=== PATIENT | female | born 1935 | race Caucasian/White ===

== ENCOUNTER → 2016-10-07 | Outpatient (CLI) | payer MEDICARE, BC ==
--- NOTE | 2016-10-08 09:33 | MAM ---
EXAM DESCRIPTION: MAMMO BREAST SCREENING BILATERAL CAD, images were reviewed with CAD technology, R2 computer-aided detection. CLINICAL HISTORY: [facility]. COMPARISON: 2011. FINDINGS: Routine views are obtained. Glandular pattern has slight nodular contour, stable. No dominant mass, architectural distortion or clustered microcalcification. Stable asymmetry inferior medial left breast since 2011.. IMPRESSION: Benign exam. BIRAD CATEGORY: 2 BENIGN RECOMMENDATIONS: FOLLOW-UP: Routine screening mammogram in one year. According to the [employer], yearly mammograms are recommended starting at age 40 and continuing as long as a woman is in good health. Any breast change noted on a breast self-exam should be reported promptly to the patient's healthcare provider. Breast MRI is recommended for women with an approximately 20-25% or greater lifetime risk of breast cancer, including women with a strong family history of breast or ovarian cancer and women who have been treated for Hodgkin's disease. Electronically signed by: Unique Kee 10/08/2016 09:31
== END ==
LOC: MAMMO 14:57
PROVIDERS: ATTEND Family Medicine
DX: Z12.31 Encounter for screening mammogram for malignant neoplasm of breast (principal)
CPT/HCPCS: 77052; G0202

== ENCOUNTER → 2016-11-26 | Outpatient (CLI) | payer MEDICARE, BC ==
--- NOTE | 2016-11-26 14:24 | MRI ---
Study: MRI of the brain. Indication: TENSION TYPE HEADACHES Technique: Multiplanar, multi sequence MRI of the brain obtained with and without intravenous contrast. Comparison: 10/12/2014. Findings: No MRI evidence of acute ischemia, acute hemorrhage, mass, mass effect, midline shift, or extra-axial fluid collection. No pathologic enhancement. Ventricles are normal in configuration without hydrocephalus. Patchy elevated T2/FLAIR signal abnormality is seen within the periventricular and subcortical white matter. Although nonspecific, this finding is most consistent with chronic microvascular ischemic change. Global parenchymal volume loss noted as well. Midline structures are intact. Paranasal sinuses are adequately aerated. Tiny bilateral mastoid effusions. Osseous structures and soft tissues demonstrate normal signal characteristics. Impression: No MRI evidence of acute intracranial abnormality. Senescent changes. Electronically signed by: Yandel Simpson MD 11/26/2016 2:23 PM [employer]
== END | disposition home or self-care (01) ==
LOC: MRI 07:40
PROVIDERS: ATTEND Family Medicine
DX: G44.209 Tension-type headache, unspecified, not intractable (principal)

== ENCOUNTER 2017-04-17 13:22 | Emergency (ER) | payer MEDICARE, BC ==
--- NOTE | 2017-04-17 13:46 | ED.PDOC ---
History of Present Illness - General Chief Complaint: GI Problem Stated Complaint: epigastric pain/tarry sstools Time Seen by Provider: 04/17/17 13:46 Information Source: patient Exam Limitations: no limitations - History of Present Illness Initial Comments: Blanca Ballard 82 y/o female with history of a.fib on pradaxa (noac) stated that she had sharp epigastric pain 4 days ago with intermittent nausea /vomiting but no hematemesis.Also noticed dark stool while in [place].Has atrial fibrillation and on Pradaxa 75mg po bid. Abdominal Pain Onset Location: epigastric Pain Radiation: back Quality: moderate, sharpness, waxing/waning Timing/Duration: other - 3-4 days ago Improving Factors: nothing Worsening Factors: nothing Associated Symptoms: nausea/vomiting Review of Systems - Review of Systems Constitutional: States: no symptoms reported EENTM: States: no symptoms reported Respiratory: States: no symptoms reported Cardiology: States: no symptoms reported Gastrointestinal/Abdominal: States: see HPI Genitourinary: States: no symptoms reported Musculoskeletal: States: no symptoms reported Skin: States: no symptoms reported Neurological: States: no symptoms reported Endocrine: States: no symptoms reported Hematologic/Lymphatic: States: no symptoms reported Past Medical History (General) - Patient Medical History Hx Stroke: No Hx Cardiac Disorders: Yes - a fib Hx Congestive Heart Failure: No Hx Hypertension: Yes Hx Diabetes: No - Social History Hx Tobacco Use: No Family Medical History - Family History Mother Living Status: Cause of : pancreatic CA Hx Family Cancer: Yes - breast,pancreas-sister/mom Physical Exam - Physical Exam General Appearance: Alert, Comfortable, No apparent distress Eyes, Ears, Nose, Throat Exam: PERRL/EOMI, normal ENT inspection, TMs normal Neck: non-tender, full range of motion, supple Respiratory: chest non-tender, lungs clear, normal breath sounds, no respiratory distress Cardiovascular/Chest: normal peripheral pulses, regular rate, rhythm, no edema, no murmur Peripheral Pulses: No deficit Gastrointestinal/Abdominal: normal bowel sounds, non tender, soft Rectal Exam: normal rectal tone, black stool Back Exam: normal inspection, no CVA tenderness, no vertebral tenderness Extremity: normal range of motion, non-tender, normal inspection Neurologic: alert, normal mood/affect, oriented x 3 Skin Exam: normal color, warm/dry Lymphatic: no adenopathy Progress - Progress Progress: 04/17/17 18:19 Vital Signs - 8 hr 04/17/17 04/17/17 04/17/17 15:22 16:22 17:22 Pulse Rate [ 84 Left Brachial] Respiratory 20 Rate Blood Pressure 114/48 119/83 126/54 [Left Arm] O2 Sat by Pulse 100 Oximetry 04/17/17 18:24 Unable to give PRBC 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 stated that she has cold agglutinins on blood / type - Results/Orders Results/Orders: 04/17/17 13:47 URINALYSIS Stat 04/17/17 13:48 IV Care:Saline Lock per Protoc QSHIFT 04/17/17 13:55 PACKED CELLS,LR Stat TYPE AND SCREEN Stat Laboratory Results - last 24 hr 04/17/17 04/17/17 04/17/17 13:55 13:55 13:55 WBC 5.9 RBC 1.99 L Hgb 6.0 L* Hct 17.6 L MCV 88.6 MCH 30.1 MCHC 34.0 RDW 14.3 Plt Count 214 MPV 9.5 Absolute Neuts (auto) 4.30 Absolute Lymphs (auto) 1.10 Absolute Monos (auto) 0.40 Absolute Eos (auto) 0.00 Absolute Basos (auto) 0.10 Neutrophils % 71.7 Lymphocytes % 19.0 L Monocytes % 7.6 Eosinophils % 0.5 L Basophils % 1.2 Sodium 138 Potassium 4.2 Chloride 103 Carbon Dioxide 24 Anion Gap 15.2 BUN 42 H Creatinine 1.28 BUN/Creatinine Ratio 32.8 H Random Glucose 141 H Serum Osmolality 288.5 Calcium 8.8 Total Bilirubin 0.5 AST 21 ALT 11 Alkaline Phosphatase 37 L Serum Total Protein 6.5 Albumin 3.8 Globulin 2.7 Albumin/Globulin Ratio 1.4 Lipase 20 L Stool Occult Blood Patient ABO/Rh A POSITIVE Antibody Screen Negative Crossmatch See Detail 04/17/17 15:14 WBC RBC Hgb Hct MCV MCH MCHC RDW Plt Count MPV Absolute Neuts (auto) Absolute Lymphs (auto) Absolute Monos (auto) Absolute Eos (auto) Absolute Basos (auto) Neutrophils % Lymphocytes % Monocytes % Eosinophils % Basophils % Sodium Potassium Chloride Carbon Dioxide Anion Gap BUN Creatinine BUN/Creatinine Ratio Random Glucose Serum Osmolality Calcium Total Bilirubin AST ALT Alkaline Phosphatase Serum Total Protein Albumin Globulin Albumin/Globulin Ratio Lipase Stool Occult Blood Positive Patient ABO/Rh Antibody Screen Crossmatch Vital Signs - 8 hr 04/17/17 04/17/17 04/17/17 15:22 16:22 17:22 Pulse Rate [ 84 Left Brachial] Respiratory 20 Rate Blood Pressure 114/48 119/83 126/54 [Left Arm] O2 Sat by Pulse 100 Oximetry Departure - Departure Clinical Impression: Anemia due to blood loss, retirement (current) use of anticoagulants Gastrointestinal bleeding Qualifiers: GI bleed type/associated pathology: melena Qualified Code(s): K92.1 - Melena A-fib Qualifiers: Atrial fibrillation type: chronic Qualified Code(s): I48.2 - Chronic atrial fibrillation Time of Disposition: 18:27 - D/W Dr.Zardain [facility] Disposition: Transfer to Hospital Departure Forms: Patient Portal Self Enrollment Referrals: Len Sosa III, MD [Primary Care Provider] - 1-2 Weeks Home Medications: Ambulatory Orders Dabigatran Etexilate [Pradaxa] 75 mg PO BID 06/15/14 Gabapentin [Neurontin] 300 mg PO QPM #20 cap 06/15/14 Metoprolol Succinate [Toprol XL] 25 mg PO BEDTIME 06/15/14 Simvastatin [Zocor] 20 mg PO BEDTIME 06/15/14 Bioflavonoid Products [Vitamin C] 1 chw PO DAILY 04/17/17 Estrogens, Conjugated [Premarin] 0.3 mg PO DAILY@62904/17/17 Furosemide Tab [Lasix Tab] 40 mg PO DAILY 04/17/17 Gabapentin [Neurontin] 300 mg PO PRN 04/17/17 Multiple Vitamin [Multi Vitamin] 1 tab PO DAILY 04/17/17 [place]-3 Fatty Acids [Fish Oil] 1 cap PO DAILY 04/17/17 Pantoprazole Tablet [Protonix] 40 mg PO ACBK 04/17/17 Potassium Chloride [K-Tab] 20 meq PO DAILY@62904/17/17 Transfer to Outside Facility - Transfer Information Accepting Facility: [facility] [place] Reason for Transfer: specialized care not available
[2017-04-17] MEDS ORDERED: PANTOPRAZOLE INJECTION 80 MG in SODIUM CHLORIDE 0.9% 100ML 80 ML IVPB ONE (15:09)
[2017-04-17] MEDS ORDERED: PANTOPRAZOLE SODIUM IV 40 MG VIAL ONE ×2 (15:42→15:45)
[2017-04-17] MEDS ORDERED: SODIUM CHLORIDE 0.9% 100ML 100 ML IVPB ONE (15:43)
[2017-04-17 19:22] VITALS: BP 127/57; TEMP 98.9; O2SAT 99
== END 2017-04-17 19:15 | disposition short-term general hospital (02) ==
LOC: ER 13:22
DX: D50.0 Iron deficiency anemia secondary to blood loss (chronic) (principal); K92.1 Melena; I48.2 Chronic atrial fibrillation; I10 Essential (primary) hypertension; Z79.01 Long term (current) use of anticoagulants
CPT/HCPCS: 36415; 80053; 82270; 83690; 85025; 86922; J7050; P9017

== ENCOUNTER → 2017-07-07 | Outpatient (CLI) | payer MEDICARE, BC | END | disposition home or self-care (01) | LOC: GMAL 10:09 | PROVIDERS: ATTEND Family Medicine | DX: D53.9 Nutritional anemia, unspecified (principal) ==

== ENCOUNTER → 2017-10-06 | Outpatient (CLI) | payer MEDICARE, BC | END | disposition home or self-care (01) | LOC: GMAL 10:50 | PROVIDERS: ATTEND Family Medicine | DX: D53.9 Nutritional anemia, unspecified (principal) ==

== ENCOUNTER → 2018-02-24 | Outpatient (CLI) | payer MEDICARE, BC ==
--- NOTE | 2018-02-26 13:12 | MAM ---
EXAM DESCRIPTION: 3D Screening BILATERAL : Digital Mammography. CLINICAL HISTORY: 83 years Female SCREENING . No complaints. Remote family history of breast cancer. No childbirth. Postmenopausal. Currently on HRT. COMPARISON: 2-D digital screening bilateral study 10/07/2016.. Report from prior examination also reviewed. TECHNIQUE: Bilateral CC and MLO projection full-field images, 3-D tomosynthesis digital mammographic technique. CAD not utilized. FINDINGS: The breast parenchymal density pattern is: Heterogeneously dense breast tissue, which may obscure small masses. No skin thickening or nipple retraction. Bilateral axillary lymph nodes. Bilateral solitary microcalcifications. Coarse calcification with soft tissue mass anterior lateral right breast. No focal, stellate mass or density, focal asymmetry , and no suspicious microcalcifications bilaterally. Stable mammograms compared to prior study, taking into account differences in mammographic technique IMPRESSION: BI-RADS CATEGORY: 2 - BENIGN FINDINGS. FOLLOW UP: Routine digital bilateral screening, one year interval from January 2018. Written communication explaining the IMPRESSION and follow-up, will be mailed to the patient and referring health care provider. According to the [employer], yearly mammograms are recommended starting at age 40 and continuing as long as a woman is in good health. Any breast change noted on a breast self-exam should be reported promptly to the patient's healthcare provider. Breast MRI is recommended for women with an approximately 20-25% or greater lifetime risk of breast cancer, including women with a strong family history of breast or ovarian cancer and women who have been treated for Hodgkin's disease. A negative mammographic report should not delay tissue diagnosis in patients with significant clinical history or physical findings. Extremely dense breast tissue limits the sensitivity of digital mammography. Electronically signed by: Frank Arango MD 02/26/2018 1:11 PM CDT
== END ==
LOC: MAMMO 10:45
PROVIDERS: ATTEND Family Medicine
DX: Z12.31 Encounter for screening mammogram for malignant neoplasm of breast (principal); R30.0 Dysuria

== ENCOUNTER 2018-05-18 09:17 | Observation (INO) | payer MEDICARE, BC ==
--- NOTE | 2018-05-18 10:06 | RAD ---
EXAM DESCRIPTION: Wrist,Left 3 Views CLINICAL HISTORY: fall, swelling, pain COMPARISON: None. IMPRESSION: 3 views of the left wrist show severe osteopenia of the osseous structures. There is a comminuted intra-articular mildly impacted fracture of the left distal radius without significant angulation of the fracture fragments. Nondisplaced left ulnar styloid avulsion fracture is seen. Mild osteoarthritic changes of the left first carpometacarpal joint are noted. Soft tissue swelling of the left wrist is seen. Electronically signed by: Chico Osborn MD 05/18/2018 10:05 AM CDT
--- NOTE | 2018-05-18 10:13 | ED.PDOC ---
History of Present Illness - General Chief Complaint: Lower Extremity Injury Stated Complaint: L wrist injury Time Seen by Provider: 05/18/18 09:53 Source: patient, family Exam Limitations: no limitations - History of Present Illness Initial Comments: the patient presents to the ED status post fall. The patient was noted to be ambulating and she was turning she was noted to fall and strike her head as well as face. The patient also states that she landed onto her left wrist. The patient states she had no LOC w/this issue but due to persistent pain in the left wrist as well as being on blood thinners she comes into the ED for further evaluation and care at this time. The patient is without other acute complaints at this time. Occurred: just prior to arrival Method of Injury: fell Improving Factors: immobilization Worsening Factors: movement Allergies/Adverse Reactions: Allergies Penicillins Allergy (Mild, Verified 05/18/18 09:41) Other swelling to lower extremities Home Medications: Ambulatory Orders Dabigatran Etexilate [Pradaxa] 75 mg PO BID 06/15/14 Gabapentin [Neurontin] 300 mg PO QPM #20 cap 06/15/14 Metoprolol Succinate [Toprol XL] 25 mg PO BEDTIME 06/15/14 Simvastatin [Zocor] 20 mg PO BEDTIME 06/15/14 Bioflavonoid Products [Vitamin C] 1 chw PO DAILY 04/17/17 Estrogens, Conjugated [Premarin] 0.3 mg PO DAILY@0630 04/17/17 Furosemide Tab [Lasix Tab] 40 mg PO DAILY 04/17/17 Gabapentin [Neurontin] 300 mg PO PRN 04/17/17 Multiple Vitamin [Multi Vitamin] 1 tab PO DAILY 04/17/17 [place]-3 Fatty Acids [Fish Oil] 1 cap PO DAILY 04/17/17 Pantoprazole Tablet [Protonix] 40 mg PO ACBK 04/17/17 Potassium Chloride [K-Tab] 20 meq PO DAILY@0630 04/17/17 Review of Systems - Review of Systems Musculoskeletal: States: see HPI All other Systems: Reviewed and Negative Past Medical History (General) - Patient Medical History Hx Stroke: No Hx Cardiac Disorders: Yes - A fib Hx Congestive Heart Failure: No Hx Hypertension: Yes Hx Diabetes: Yes Hx Gastroesophageal Reflux: Yes Surgical History: cholecystectomy, tonsillectomy, other - Vaccination History Hx Influenza Vaccination: Yes - 2017 Hx Pneumococcal Vaccination: Yes - Social History Hx Tobacco Use: No Family Medical History - Family History Mother Living Status: Cause of : pancreatic CA Hx Family Cancer: Yes - breast,pancreas-sister/mom Physical Exam - Physical Exam General Appearance: Alert, Comfortable Eyes, Ears, Nose, Throat: PERRL/EOMI, normal ENT inspection Neck: non-tender, full range of motion Cardiovascular/Respiratory: regular rate, rhythm, no M/R/G Gastrointestinal/Abdominal: non-tender Back: normal inspection Thigh/Hip: normal inspection Leg: normal inspection Knee: normal inspection Ankle: normal inspection Foot: normal inspection Neuro/Tendon: normal sensation Mental Status: alert, oriented x 3 Skin: normal color Comments: The patient's left wrist is evaluated at this time and she is noted to have mild swelling. The patient's dorsalis pedis pulses are intact bilaterally and w/ in normal limits. The patient's ROM of the left wrist is noted to be restricted as well due to pain. Progress - Progress Progress: 05/18/18 10:17 PATIENT PRESENTATION APPEARS TO BE CONSISTENT WITH INJURIES DUE TO TRAUMA. WILL ORDER IMAGING OF AREAS THAT WERE INJURED(PLAIN FILMS OF THE WRIST WELL CT HEAD/NECK DUE TO BLOOD THINNER USAGE.) TO EVALUATE FOR EMERGENT PATHOLOGY IN THESE AREAS. I WILL ALSO ORDER SCREENING LABS WELL PT/INR IN LIGHT OF PATIENT BEING ANTICOAGULATED. THE PATIENT'S DISPO WILL BE DEPENDENT UPON HER ED WORK UP. 05/18/18 11:03 THE PATIENT HAS BEEN ADVISED THAT SHE IS NOTED TO HAVE FX OF THE LEFT WRIST AND WILL REQUIRE SPLINT PLACEMENT. SHE IS ADVISED I WILL CONTACT ORTHOPEDICS FOR THEIR RECOMMENDATIONS. SHE IS ALSO ADVISED SHE REQUIRES OBSERVATION IN THE HOSPITAL DUE TO HER FALL. 05/18/18 11:36 THE PATIENT REMAINS WELL AT THIS TIME. SHE HAS BEEN ADVISED OF HER CT RESULTS AT THIS TIME. SHE IS ADVISED THAT DR. CROOKS RECOMMENDS TO CALL HIS OFFICE WHEN DISCHARGED SO THAT HE MAY SEE HER TO FORM A PLAN TO CARE FOR HER INJURIES. THE PATIENT IS IN AGREEMENT W/ THIS PLAN. 05/18/18 11:43 - EKG/XRAY/CT EKG: Atrial, nonspecific ST T wave Chg Comments: RATE 81BPM, QRS-78MS - Consult/PCP Time Called: 11:30 Consult/PCP: DR. CROOKS(ORTHO) Consult Reason/Comments: STATES THE PATIENT MAY F/U WITH HIM ON AN OUTPATIENT BASIS FOR FURTHER EVAL - Additional EKG/XRAY/Consults Time Called: 11:36 Consult/PCP: MR ALEXANDER Reason/Comments: ACCEPTS THE PATIENT FOR MONITORING OVERNIGHT DUE TO FALL. Procedures - Splinting Left Wrist Hand-Made Type: orthoglass Splint: sugar-tong Pre-Proc Neuro Vasc Exam: normal Post-Proc Neuro Vasc Exam: normal Progress: PATIENT TOLERATED PROCEDURE WELL. Departure - Departure Clinical Impression: Fracture due to fall, Fracture of head of femur Head injury due to trauma Qualifiers: Encounter type: initial encounter Qualified Code(s): S09.90XA - Unspecified injury of head, initial encounter Distal radial fracture Qualifiers: Encounter type: initial encounter Fracture type: closed Fracture morphology: other intra-articular Laterality: left Qualified Code(s): S52.572A - Other intraarticular fracture of lower end of left radius, initial encounter for closed fracture Clinical Impression: (Ruled Out): Radial head fracture, closed Disposition: Admit Patient Condition: Fair Instructions: DI for Leg Pain Home Medications: Ambulatory Orders Dabigatran Etexilate [Pradaxa] 75 mg PO BID 06/15/14 Gabapentin [Neurontin] 300 mg PO QPM #20 cap 06/15/14 Metoprolol Succinate [Toprol XL] 25 mg PO BEDTIME 06/15/14 Simvastatin [Zocor] 20 mg PO BEDTIME 06/15/14 Bioflavonoid Products [Vitamin C] 1 chw PO DAILY 04/17/17 Estrogens, Conjugated [Premarin] 0.3 mg PO DAILY@0630 04/17/17 Furosemide Tab [Lasix Tab] 40 mg PO DAILY 04/17/17 Gabapentin [Neurontin] 300 mg PO PRN 04/17/17 Multiple Vitamin [Multi Vitamin] 1 tab PO DAILY 04/17/17 [place]-3 Fatty Acids [Fish Oil] 1 cap PO DAILY 04/17/17 Pantoprazole Tablet [Protonix] 40 mg PO ACBK 04/17/17 Potassium Chloride [K-Tab] 20 meq PO DAILY@0604/17/17
--- NOTE | 2018-05-18 10:39 | CT ---
EXAM DESCRIPTION: Head CLINICAL HISTORY: 83 years, Female, trauma COMPARISON: None TECHNIQUE: Head CT was performed without IV contrast. This exam was performed according to our departmental dose-optimization program, which includes automated exposure control, adjustment of the mA and/or kV according to patient size and/or use of iterative reconstruction technique. FINDINGS: There is no acute intracranial hemorrhage. No midline shift or mass effect. Generalized age-appropriate volume loss is noted. The ventricles and basilar cisterns are well maintained. No posterior fossa lesion. Chronic ischemic changes are present in the periventricular white matter without cortical infarct or intracranial mass. Visualized paranasal sinuses and orbits are unremarkable. No calvarial lesion. IMPRESSION: Chronic ischemic changes and age-appropriate volume loss, but no acute intracranial abnormality. Electronically signed by: Santo Peterson MD 05/18/2018 10:37 AM CDT
--- NOTE | 2018-05-18 10:42 | CT ---
EXAM DESCRIPTION: Cervical Spine CLINICAL HISTORY: trauma COMPARISON: None available. TECHNIQUE: CT of the cervical spine was performed without IV contrast. This exam was performed according to our departmental dose-optimization program, which includes automated exposure control, adjustment of the mA and/or kV according to patient size and/or use of iterative reconstruction technique. FINDINGS: There is no vertebral body fracture or subluxation. Degenerative changes are noted at several levels in the mid and upper cervical spine including disc space narrowing, worse at C2-3, C4-5 and C5-6. Facet joints are fairly well-maintained. No central canal or neuroforaminal stenosis is identified. Scarring and possible emphysematous changes are noted in the lung apices. No apical pneumothorax. No suspicious thyroid nodule. IMPRESSION: [id number] degenerative changes, but no acute cervical spine abnormality. Electronically signed by: Santo Peterson MD 05/18/2018 10:40 AM CDT
[2018-05-18] MEDS ORDERED: MORPHINE SULFATE INJ 10 MG/ML VIAL IV ONE (11:46)
--- NOTE | 2018-05-18 11:58 | HP ---
SUPERVISING PHYSICIAN: Martin Patel MD CHIEF COMPLAINT: Left wrist pain. HISTORY OF PRESENT ILLNESS: This is an 83-year-old female who was walking outside and was turning onto her walkway when she fell. She remembers falling and was not syncopal, but she did state she felt a little bit weird prior to the episode, also a little bit dizzy, but no chest pain or palpitations. She said it was not even quite dizzy, it was just a weird sensation. She did hit her chin and as she was falling on the ground, she attempted to catch herself with her left wrist. Due to this episode, she came to the Emergency Room. In the Emergency Room, she had a workup which included x-rays. She had a wrist x- ray which showed comminuted intraarticular mildly impacted fracture of the left distal radius without significant angulation of the fracture fragments and nondisplaced left ulnar styloid avulsion fracture. Dr. Rico was consulted and states he would see the patient in consult as an outpatient. However, the patient does take warfarin for chronic atrial fibrillation and although her INR is subtherapeutic, she did have a CT of the brain which did not show any acute findings. CT of the cervical spine showed no acute findings either, but she was referred for admission for observation overnight. At time of examination, the patient is alert and oriented, having a little bit of left wrist pain but otherwise in no severe distress. PAST MEDICAL HISTORY: 1. Chronic atrial fibrillation. 2. Hyperlipidemia. 3. Hypertension. 4. Pulmonary hypertension. 5. Gastroesophageal reflux disease. 6. Diabetes mellitus, type 2. 7. Osteoporosis. 8. Migraine headaches. 9. Possible Parkinson's disease. PAST SURGICAL HISTORY: 1. Tonsillectomy. 2. Tubal ligation. 3. Basal cell carcinoma of the left axilla with radiation therapy. 4. Dental surgery. 5. Ganglion cyst surgery on her wrist. 6. EGD and colonoscopies. 7. 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 Last echocardiogram showed ejection fraction of 55% to 60%, mild biatrial enlargement, mild right ventricular enlargement with mild pulmonary hypertension. ALLERGIES: PENICILLIN, ARICEPT, NAMENDA, NIACIN, PROTONIX, SULFA DRUGS. FAMILY HISTORY: Her father in his 40s from heart disease. Mother in her 70s from pancreatic cancer and she also had type 2 diabetes mellitus. Her brother of a stroke. Her sister had Jeyson's disease and after a valve replacement surgery. SOCIAL HISTORY: The patient is , retired. She is a nonsmoker, nondrinker, no illicit drugs. REVIEW OF SYSTEMS: CONSTITUTIONAL: No fever or chills. No recent weight loss or weight gain. HEENT: No headaches, vision changes, ear pain, nasal congestion or throat pain. RESPIRATORY: No cough, hemoptysis or pleuritic chest pain. CARDIOVASCULAR: No chest pain, palpitations or peripheral edema. GASTROINTESTINAL: No nausea, vomiting, diarrhea, constipation or abdominal pain. GENITOURINARY: No dysuria, frequency or flank pain. HEMATOLOGIC: Positive for easy bruising. No transfusion reaction. MUSCULOSKELETAL: Left wrist pain. ENDOCRINE: No polydipsia, polyuria or polyphagia. No heat or cold intolerance. NEUROLOGIC: No syncope, paresthesias or seizures. PHYSICAL EXAMINATION: VITAL SIGNS: Blood pressure 164/72. Heart rate 82. Respiratory rate 18. Temperature 98.6. Oxygen saturation 97%. GENERAL: Ms. Ballard is an 83-year-old female who is in no active distress currently. HEENT: Normocephalic, atraumatic. Pupils are equal and reactive. No nasal drainage. Throat with moist mucosa. NECK: Supple. Midline trachea. No jugular venous distention. CHEST: Symmetrical with equal rise and fall of the chest with inspiration and expiration. Lung sounds are clear to auscultation bilaterally. CARDIOVASCULAR: Regular rate and rhythm. Normal S1, S2. ABDOMEN: Soft. Positive bowel sounds. GENITOURINARY: Deferred. EXTREMITIES: Lower extremities with no edema. Pulses 2+. Capillary refill is less than 2 seconds. NEUROLOGIC: The patient is alert and oriented. Moves all extremities. Extraocular movements are intact. MUSCULOSKELETAL: Left wrist has edema and some tenderness to palpation. LABORATORY: X-rays are as discussed in history of present illness. Labs also show a normal white count. INR 1.3. She does have a mildly elevated BUN of 26. Otherwise, unremarkable chemistry. ASSESSMENT: 1. Same level fall. 2. Left wrist fracture. 3. History of atrial fibrillation on anticoagulation therapy. 4. Dehydration. 5. History of diagnosed diabetes mellitus, but diet controlled currently. PLAN: At this point, we will monitor the patient overnight to ensure she has no further episodes of falling or feeling odd. As stated in history of present illness, there were no real palpitations or loss of consciousness, however, she did have an odd sensation. I have ordered a child monitor to ensure that she is not having any arrhythmias although she does have a history of atrial fibrillation. Once her medications are verified in the computer, I will restart those as well. I have ordered continuous IV fluids to be infused as well due to the dehydration. #[id number] [facility]
[2018-05-18] MEDS ORDERED: SODIUM CHLORIDE 0.9% (FLUSH) 10 ML SYG IV PRN (13:15)
[2018-05-18] MEDS ORDERED: IV SET AND CAP CHANGE INJ INJ SCH (13:30)
--- NOTE | 2018-05-18 16:21 | US ---
EXAM DESCRIPTION: Venous,Lower Extremity LT CLINICAL HISTORY: 83 years Female rule out dvt COMPARISON: None. TECHNIQUE: Duplex and color Doppler imaging performed to evaluate the extremity deep venous structures. Compression imaging and augmentation imaging performed. FINDINGS: No thrombus is identified in the deep venous structures imaged. There is normal flow, compressibility, and augmentation throughout. IMPRESSION: No DVT is identified. Electronically signed by: Frank Davey 05/18/2018 4:20 PM CDT
--- NOTE | 2018-05-18 16:22 | US ---
EXAM DESCRIPTION: Venous,Lower Extremity RT CLINICAL HISTORY: rule out dvt COMPARISON: None Available. TECHNIQUE: Bilateral lower extremity venous duplex FINDINGS: There is no DVT identified. There is normal color flow observed with good flow augmentation. All deep veins compress normally. IMPRESSION: Negative for DVT Electronically signed by: Smith Espino MD 05/18/2018 4:20 PM CDT
[2018-05-18] MEDS ORDERED: ACETAMINOPHEN 325 MG TAB PO PRN (16:49)
[2018-05-18] MEDS: SODIUM CHLORIDE 0.9% 1000ML 1,000 ML IVS PRN (16:56)
[2018-05-18] MEDS ORDERED: ESTROGENS CONJUGATED 0.3 MG PO SCH (17:45)
[2018-05-18] MEDS ORDERED: GABAPENTIN 300 MG CAP PO SCH (18:00)
[2018-05-18] MEDS: DABIGATRAN ETEXILATE 75 MG CAP PO SCH (20:56)
[2018-05-18] MEDS ORDERED: METOPROLOL SUCCINATE XL 25 MG TAB PO SCH (21:00)
[2018-05-18] MEDS ORDERED: SIMVASTATIN 20 MG TAB PO SCH (21:00)
[2018-05-18] MEDS ORDERED: LOSARTAN POTASSIUM 25 MG TAB PO SCH (21:00)
[2018-05-19] MEDS: SODIUM CHLORIDE 0.9% 1000ML 1,000 ML IVS PRN (02:42)
[2018-05-19] MEDS ORDERED: POTASSIUM CHLORIDE 20 MEQ TAB ONE (04:32)
[2018-05-19] MEDS ORDERED: NON-FORMULARY MEDICATION 1 EA MIS (Potassium Chloride [K-Tab] 20 MEQ) PO SCH (06:30)
[2018-05-19] MEDS ORDERED: PANTOPRAZOLE SODIUM TAB 40 MG PO SCH (07:00)
[2018-05-19] MEDS: DABIGATRAN ETEXILATE 75 MG CAP PO SCH (08:09)
[2018-05-19] MEDS ORDERED: MULTIPLE VITAMIN 1 EA TAB PO SCH (09:00)
[2018-05-19] MEDS ORDERED: FISH OIL 1,200 MG CAP PO SCH (09:00)
[2018-05-19] MEDS ORDERED: DIGOXIN 0.125 MG TAB PO SCH (09:00)
[2018-05-19 10:28] VITALS: BP 174/70; TEMP 98.6; O2SAT 98
--- NOTE | 2018-05-19 10:40 | CT ---
EXAM DESCRIPTION: Head: Computed Tomography. CLINICAL HISTORY: closed head injury S/P fall on Pradaxa. Discharge planning. COMPARISON: CT scan of the head and cervical spine on 05/18/2018. TECHNIQUE: Non-helical axial scans through the skull and brain, at 2.5 mm intervals, non-contrast. Coronal and sagittal 2.0 mm reconstructions. Total Exam DLP: 752.48 mGy-cm. This exam was performed according to our departmental dose-optimization program which includes automated exposure control, adjustment of the mA and/or kV according to patient size and/or use of iterative reconstruction technique; to reduce radiation dose to as low as reasonably achievable (ALARA). FINDINGS: No intra-axial hemorrhage, no mass-effect, and no midline shift. Bilateral minimal periventricular white matter low-density more evident in the frontal and occipital lobes and also in the right frontal subcortical white matter. Stable since the prior study. No abnormal radiodense material in the brain parenchyma. Vascular calcifications anterior and posterior; physiologic calcifications in the pineal gland and choroid plexus. No effacement or displacement of the ventricles, CSF spaces, or subdural spaces. Stable since the prior study. No extra axial fluid collection or hemorrhage. No gross abnormalities of the bony calvarium. Paranasal sinuses are stable. IMPRESSION: 1. No hemorrhage, no mass effect, no midline shift. Periventricular white matter age related changes and cerebral microvascular disease, also focal in the right frontal subcortical white matter. Stable since the prior study. No extra-axial hemorrhage. Electronically signed by: Frank Arango MD 05/19/2018 10:39 AM CDT
[2018-05-19] MEDS ORDERED: metFORMIN HCL 500 MG TAB PO SCH (16:30)
[2018-05-20] MEDS ORDERED: POTASSIUM CHLORIDE 20 MEQ TAB PO SCH (06:30)
--- NOTE | 2018-05-24 09:02 | DS ---
SUPERVISING PHYSICIAN: Martin Patel MD ADMISSION DIAGNOSIS: 1. Same level fall. 2. Left wrist fracture. 3. History of atrial fibrillation on anticoagulation therapy. 4. Dehydration. 5. History of diagnosed diabetes mellitus, but diet controlled currently. DISCHARGE DIAGNOSIS: 1. Same level fall with closed head injury without any evidence of acute pathological findings on CT with the patient having been on Pradaxa. 2. Left wrist fracture with comminuted intraarticular mildly displaced impacted fracture of the left distal radius and nondisplaced left ulnar styloid avulsion fracture status post same level fall. 3. History of atrial fibrillation on Pradaxa with a controlled ventricular rate. 4. Dehydration, improved with fluids. 5. History of diabetes mellitus, diet controlled currently. REASON FOR HOSPITALIZATION: Ms. Ballard is an 83-year-old female who was admitted on 05/18/18 after she was working outside and was turning onto her walkway when she fell. She remembers falling and did not have a syncopal episode, but she did state she felt a little bit weird prior to the episode, also a little bit dizzy, but no chest pain or palpitations. She said it was not even quite dizzy, it was just a weird sensation. She did hit her chin and as she was falling on the ground, she attempted to catch herself with her left wrist. Due to this episode, she came to the Emergency Room. In the Emergency Room, she had a workup which included x-rays. She had a wrist x-ray which showed comminuted intraarticular mildly impacted fracture of the left distal radius without significant angulation of the fracture fragments and nondisplaced left ulnar styloid avulsion fracture. Dr. Rico was consulted and noted he would see the patient as an outpatient. However, the patient does take Pradaxa for chronic atrial fibrillation and had a CT of the brain which did not show any acute findings. CT of the cervical spine showed no acute findings either, but she was referred for admission for observation overnight given her risk factors for taking Pradaxa status post fall and closed head injury. At time of placement in observation, the patient was alert and oriented , having some left wrist pain, but otherwise in no severe distress. LABORATORY: White count was 6,900 at admission with hemoglobin 13.2, hematocrit 39.3, platelet count 162,000. Differential was without left shift. Coagulation studies with the patient on Pradaxa showed PT 13, PT-T 40.9. Chemistries initially on admission showed normal electrolytes as well as discharge with potassium 4.0, BUN 19. At discharge, creatinine 0.98, troponin less than 0.02, calcium 8.7. RADIOLOGY: Wrist x-ray in the Emergency Department per radiologic interpretation initially showed a nondisplaced left ulnar styloid avulsion fracture as well as comminuted intraarticular mildly impacted fracture of the left distal radius without any significant angulation of the fracture fragment. CT of the head without contrast initially in the Emergency Department per radiologic interpretation was also completed and showed chronic ischemic changes with age-appropriate volume loss, but no acute intracranial abnormalities. CT of the cervical spine was also completed and per radiologic interpretation showed mild to moderate degenerative changes, but no acute cervical spine abnormalities noted. She also had bilateral lower extremity ultrasounds with no DVTs identified. On the day of discharge, she had a followup CT of the head without contrast and per radiologic interpretation no additional acute findings were noted. No hemorrhage, no mass effects, no midline shift. HOSPITAL COURSE: Ms. Ballard was admitted from the Emergency Room to observation as noted status post fall with left wrist fracture as well as noted above as well as concerns for possible closed head injury with the patient having high risk factors from being on Pradaxa. She was found to be in no acute distress admission to the Medical/Surgical Floor. She had a sugar-tong splint in place prior to admission that was done in the Emergency Room. She was given adequate pain control. She was given IV fluids. She had no change in her neurologic status and was stable enough to be followed in the outpatient setting. PLAN: Ms. Ballard was discharged on 05/19/18 with instructions to followup with Dr. Rico for further evaluation and treatment of left wrist fracture and Dr. Sosa as needed. She was to resume her home medications as instructed. She was to take pain medications as directed. She was told to return to the hospital should she have any concerning symptoms. Diet at discharge was diabetic diet as tolerated. Activity to increase as tolerated, but no pulling or lifting with left arm. Sling in place as needed. Prescriptions at discharge included Tylenol #3, 1 q.4h. as needed, #30; Flexeril 5 mg q.8h. as needed, #20; Tylenol 650 mg q.6h. as needed. Condition on discharge was stable and improved. #[id number] [facility]
== END 2018-05-19 13:10 | disposition home or self-care (01) ==
LOC: ER 09:17 → MS 11:57
PROVIDERS: ADMIT Nurse Practitioner; ATTEND Nurse Practitioner Family
DX: S52.572A Other intraarticular fracture of lower end of left radius, initial encounter for closed fracture (principal); S52.615A Nondisplaced fracture of left ulna styloid process, initial encounter for closed fracture; S09.90XA Unspecified injury of head, initial encounter; I48.2 Chronic atrial fibrillation; E86.0 Dehydration; E11.9 Type 2 diabetes mellitus without complications; M47.812 Spondylosis without myelopathy or radiculopathy, cervical region; M18.12 Unilateral primary osteoarthritis of first carpometacarpal joint, left hand; E78.5 Hyperlipidemia, unspecified; I10 Essential (primary) hypertension; K21.9 Gastro-esophageal reflux disease without esophagitis; M81.0 Age-related osteoporosis without current pathological fracture; Z79.02 Long term (current) use of antithrombotics/antiplatelets; Z79.84 Long term (current) use of oral hypoglycemic drugs; Z79.899 Other long term (current) drug therapy; Z88.0 Allergy status to penicillin; W18.39XA Other fall on same level, initial encounter; Y93.01 Activity, walking, marching and hiking; Y92.008 Other place in unspecified non-institutional (private) residence as the place of occurrence of the external cause
CPT/HCPCS: 29125; 96361 ×2; J2270; J7030 ×2; 80048 ×2; 36415 ×2; 85025; 85730; 85610; 84484; 73110; 70450 ×2; 72125; 93971 ×2; 99285; 93005; G0378; 96374

== ENCOUNTER → 2018-05-24 | Outpatient (CLI) | payer MEDICARE, BC ==
--- NOTE | 2018-05-24 09:28 | RAD ---
EXAM DESCRIPTION: Wrist,Left 3 Views CLINICAL HISTORY: 83 years Female, PAIN IN LEFT WRIST COMPARISON: May 18, 2018 FINDINGS: Bony detail is obscured by artifact from superimposed material. Again seen is an impacted slightly displaced distal left radial fracture with probable intra-articular extension, not significantly changed from six days prior. A nondisplaced fracture through the base of the ulnar styloid was better seen on the patient's previous radiograph and not well visualized on today's exam. Carpal bones are intact.. IMPRESSION: Impacted, slightly displaced distal left radial fracture with intra-articular extension, not significantly changed from six days prior. Nondisplaced ulnar styloid fracture, better visualized on the patient's previous exam. Electronically signed by: Santo Peterson MD 05/24/2018 9:26 AM CDT
== END ==
LOC: RAD 08:45
PROVIDERS: ATTEND Orthopaedic Surgery
DX: S52.615A Nondisplaced fracture of left ulna styloid process, initial encounter for closed fracture (principal); S52.122A Displaced fracture of head of left radius, initial encounter for closed fracture

== ENCOUNTER → 2018-06-04 | Outpatient (CLI) | payer MEDICARE, BC ==
--- NOTE | 2018-06-04 08:12 | RAD ---
EXAM DESCRIPTION: Wrist,Left 3 Views CLINICAL HISTORY: 83 years, Female, CLOSED FRACTURE OF DISTAL END OF RADIUS COMPARISON: Previous study May 24, 2018 FINDINGS: Left wrist 3 x-ray views shows fractured distal radius with impaction and extension into the radiocarpal joint. Radiocarpal joint appears narrowed. Mild degenerative changes of the lateral carpus and at the first metacarpal phalangeal joint. Fracture through the base of the ulnar styloid is questioned without displacement. Impacted radial fracture appears slightly different in configuration compared to the previous study. The degree of impaction appears greater. The overlap of the lateral fragment with the cortex of the proximal fragment appears greater on the AP view. On the lateral view, the step-off at the articular surface appears new or increased. Between the anterior and posterior fragments, step-off at the articular surface measures 1.4 mm. The more posterior fragment appears more impacted. This could be due to continued motion or reinjury. Radiopaque foreign bodies are seen along the dorsal aspect of the bases of the fourth and fifth digits. Carpal relationships are well-maintained. IMPRESSION: Worsened impaction of the fractured distal left radius. Question nondisplaced fracture of the base of the ulnar styloid Electronically signed by: Michele Burnett MD 06/04/2018 8:10 AM CDT
== END ==
LOC: RAD 07:39
PROVIDERS: ATTEND Orthopaedic Surgery
DX: S52.501D Unspecified fracture of the lower end of right radius, subsequent encounter for closed fracture with routine healing (principal)

== ENCOUNTER → 2018-06-14 | Outpatient (CLI) | payer MEDICARE, BC ==
--- NOTE | 2018-06-14 08:21 | RAD ---
EXAM DESCRIPTION: Wrist,Left 3 Views CLINICAL HISTORY: 83 years, Female, FX distal left radius COMPARISON: Previous study June 04, 2018 FINDINGS: Left wrist 3 x-ray views is obtained with cast material in place. Comminuted impacted fracture of the distal radius is noted. No change in alignment since the previous study there may be early callus formation. Carpal relationships are well-maintained. Distal radius and ulna appear intact. Normal metacarpals. Degenerative changes are seen in the lateral carpus and at the first metacarpal phalangeal joint. Previous report raised the question of fracture of the base of the ulnar styloid. This is not seen on the casted views. IMPRESSION: Casted views of fractured distal left radius. Electronically signed by: Michele Burnett MD 06/14/2018 8:20 AM CDT
== END ==
LOC: RAD 07:48
PROVIDERS: ATTEND Orthopaedic Surgery
DX: S52.501D Unspecified fracture of the lower end of right radius, subsequent encounter for closed fracture with routine healing (principal)

== ENCOUNTER → 2018-06-24 | Outpatient (CLI) | payer MEDICARE, BC ==
--- NOTE | 2018-06-24 11:54 | RAD ---
EXAM DESCRIPTION: Wrist,Left 3 Views CLINICAL HISTORY: CLOSED FX OF DISTAL RADIUS COMPARISON: 24 May 2018 TECHNIQUE: 3 views left FINDINGS: The exam is obtained through casting material. An impacted comminuted fracture of the distal radius is demonstrated. Callus formation is observed at the fracture site. IMPRESSION: A healing comminuted fracture of the distal radius is observed. Electronically signed by: Len Olmedo MD 06/24/2018 11:53 AM CDT
== END ==
LOC: RAD 07:36
PROVIDERS: ATTEND Orthopaedic Surgery
DX: S52.501D Unspecified fracture of the lower end of right radius, subsequent encounter for closed fracture with routine healing (principal)

== ENCOUNTER → 2018-07-05 | Outpatient (CLI) | payer MEDICARE, BC ==
--- NOTE | 2018-07-05 12:20 | RAD ---
EXAM DESCRIPTION: Wrist,Left 3 Views CLINICAL HISTORY: RAD FX COMPARISON: Radiographs left wrist 06/24/2018. TECHNIQUE: AP, lateral, and oblique images left distal forearm and wrist. FINDINGS: Immobilization material limits evaluation of fine detail. Compression fracture of the distal radius and ulna with Colles' type angulation is again seen. Bone more sclerotic abutting the fracture. Proximal shaft of the radius displaced slightly ulnar direction. Radiocarpal orientation is stable with narrowing of the radial scaphoid joint. IMPRESSION: The bone is more sclerotic abutting the fracture site of the distal radius at the meta-epiphysis. Angulation unchanged. Radiocarpal articulation is stable. Electronically signed by: Frank Arango MD 07/05/2018 12:18 PM CDT
== END ==
LOC: RAD 07:45
PROVIDERS: ATTEND Orthopaedic Surgery
DX: S52.501D Unspecified fracture of the lower end of right radius, subsequent encounter for closed fracture with routine healing (principal)

== ENCOUNTER → 2018-07-19 | Outpatient (CLI) | payer MEDICARE, BC ==
--- NOTE | 2018-07-19 09:05 | RAD ---
EXAM DESCRIPTION: Wrist,Left 3 Views CLINICAL HISTORY: 83 years Female, RAD FX COMPARISON: July 05, 2018 FINDINGS: Again seen is an impacted slightly comminuted distal left radial fracture with intra-articular extension. The fracture appears non or partially united, not significantly changed from July 05, 2018. No new fracture or malalignment is identified. IMPRESSION: Impacted, non or only partially united distal left radial fracture with mild comminution and intra-articular extension, not significantly changed from July 05, 2018. Electronically signed by: Santo Peterson MD 07/19/2018 9:03 AM CDT
== END ==
LOC: RAD 07:39
PROVIDERS: ATTEND Orthopaedic Surgery
DX: S52.501D Unspecified fracture of the lower end of right radius, subsequent encounter for closed fracture with routine healing (principal)

== ENCOUNTER → 2018-08-03 | Outpatient (CLI) | payer MEDICARE, BC | LOC: GMAL 11:15 | PROVIDERS: ATTEND Family Medicine | DX: E55.9 Vitamin D deficiency, unspecified (principal) ==

== ENCOUNTER → 2018-08-30 | Outpatient (CLI) | payer MEDICARE, BC ==
--- NOTE | 2018-08-30 09:32 | RAD ---
EXAM DESCRIPTION: Wrist,Left 3 Views CLINICAL HISTORY: 83 years Female, RAD FX COMPARISON: None available. FINDINGS: The visualized bones appear mildly osteopenic. Healing impacted fracture of the distal radius is again noted. The soft tissues appear grossly unremarkable. IMPRESSION: Healing impacted fracture of the distal radius is again noted. Electronically signed by: Martine Hurst MD 08/30/2018 9:30 AM [facility]
== END ==
LOC: RAD 07:36
PROVIDERS: ATTEND Orthopaedic Surgery
DX: S52.502D Unspecified fracture of the lower end of left radius, subsequent encounter for closed fracture with routine healing (principal)

== ENCOUNTER → 2018-09-09 | Outpatient (CLI) | payer MEDICARE, BC ==
--- NOTE | 2018-09-09 10:14 | RAD ---
EXAM DESCRIPTION: Pelvis CLINICAL HISTORY: 83 years Female, PAIN IN RIGHT HIP COMPARISON: None. FINDINGS: Single AP view of the pelvis shows no acute fracture or malalignment. No joint space narrowing. Degenerative changes in the lower lumbar spine including disc disease. Artifact from patient's clothing is noted. IMPRESSION: Degenerative changes in the lower lumbar spine including degenerative disc disease without additional hip or other pelvic abnormality. Electronically signed by: Santo Peterson MD 09/09/2018 10:13 AM [facility]
--- NOTE | 2018-09-09 10:15 | RAD ---
EXAM DESCRIPTION: Knee,Right Complete CLINICAL HISTORY: 83 years Female, PAIN IN RIGHT KNEE COMPARISON: None. FINDINGS: Four views of the right knee show no acute fracture or malalignment. Mild medial joint space narrowing with more advanced joint space narrowing in the patellofemoral compartment. Small to moderate size right knee joint effusion. IMPRESSION: Right knee joint effusion without acute fracture or malalignment. Degenerative changes in the medial and patellofemoral compartments, worse in the patellofemoral compartment. Electronically signed by: Santo Peterson MD 09/09/2018 10:14 AM [facility]
== END ==
LOC: RAD 08:34
PROVIDERS: ATTEND Orthopaedic Surgery
DX: M25.561 Pain in right knee (principal); M25.551 Pain in right hip; M51.36 Other intervertebral disc degeneration, lumbar region; M25.461 Effusion, right knee

== ENCOUNTER → 2018-10-07 | Outpatient (CLI) | payer MEDICARE, BC | LOC: RESP 09:22 | PROVIDERS: ATTEND Orthopaedic Surgery | DX: Z01.818 Encounter for other preprocedural examination (principal) ==

== ENCOUNTER 2018-11-10 06:00 | Inpatient (IN) | payer MEDICARE, BC ==
--- NOTE | 2018-11-08 09:21 | HP ---
CHIEF COMPLAINT: Right knee pain. HISTORY OF PRESENT ILLNESS: Ms. Ballard is a 83-year-old female with a history of pain in the knee. She has had multiple interventions, however, has failed to gain relief. Because of her ongoing pain, she has requested operative intervention. After discussing the risks, benefits and alternatives to operative intervention, she has given informed consent. PAST SURGICAL HISTORY: 1. Removal of basal cell carcinoma. MEDICATIONS: 1. Digoxin. 2. Furosemide. 3. Gabapentin. 4. Metoprolol. 5. Pradaxa. 6. Premarin. 7. Simvastatin. ALLERGIES: AMOXICILLIN. FAMILY HISTORY: None pertinent to today's complaint. SOCIAL HISTORY: The patient does not drink, smoke or use any illicit drugs. REVIEW OF SYSTEMS: Negative except as indicated in the History of Present Illness. PHYSICAL EXAMINATION: VITAL SIGNS: Blood pressure 131/85. Pulse 87. Height 5'4". Weight 138 pounds. MENTAL STATUS: The patient is awake, alert, and is able to give a good history and participate in the physical. The patient is oriented to person, place and time. SKIN: Normal tone and turgor. HEENT: Normocephalic, atraumatic. Pupils equal, round and reactive. Mucosal membranes are moist. NECK: Normal range of motion. No thyromegaly, no lymphadenopathy. CHEST: Normal respiratory excursion. CARDIAC: Regular rate and rhythm. No murmurs, rubs or gallops. MUSCULOSKELETAL: Bilateral upper extremities show full active range of motion of the shoulders, elbows and digits. She has slight limitation in wrist range of motion secondary to fracture on the left distal radius. Sensation is intact. There is no gross overall malalignment or deformity. The left lower extremity shows full range of motion in the hip and knee. She has mild pain with range of motion of the knee. She has no deformity and no malalignment. The right lower extremity shows full range of motion of the hip. She has severe pain with range of motion of the knee with patella mobilization. She has crepitus throughout her range of motion. Sensation is intact throughout the extremity and it is warm and well perfused. She has no obvious varus/valgus or anterior/posterior laxity. IMAGING: X-rays show sever arthritis especially prominent in the patellofemoral joint. ASSESSMENT: 1. Arthritis. PLAN: The plan at this point is for total knee arthroplasty. We have discussed the risks, benefits, and alternatives to that and the patient has given informed consent. #[id number] [facility]
[2018-11-10] MEDS ORDERED: SODIUM CHLORIDE 0.9% 250ML 250 ML ONE ×2 (06:05→18:34)
[2018-11-10] MEDS ORDERED: SODIUM CHLORIDE 0.9% 100ML 100 ML IVPB ONE (06:05)
[2018-11-10] MEDS ORDERED: LACTATED RINGERS 1,000 ML ONE (06:05)
[2018-11-10] MEDS ORDERED: TRANEXAMIC ACID 1,000 MG/10 ML VIAL ONE ×2 (06:05→06:06)
[2018-11-10] MEDS ORDERED: VANCOMYCIN HCL INJ 1,000 MG VIAL IVPB ONE ×2 (06:05→18:34)
[2018-11-10] MEDS ORDERED: ceFAZolin SODIUM 1 GM VIAL ONE ×4 (06:36→19:09)
[2018-11-10] MEDS ORDERED: ACETAMINOPHEN IV 1000MG 100 ML ONE (06:38)
[2018-11-10] MEDS ORDERED: MIDAZOLAM INJ 2 MG/2 ML VIAL ONE (06:39)
[2018-11-10] MEDS ORDERED: fentaNYL CITRATE INJ 50 MCG/ML AMP ONE (06:39)
[2018-11-10] MEDS ORDERED: MORPHINE SULF *EPIDURAL* 1 MG/ML VIAL ONE (06:39)
[2018-11-10] MEDS ORDERED: SODIUM CHL 0.9% 100ML MINI-BAG 100 ML IVPB ONE (06:43)
[2018-11-10] MEDS ORDERED: BUPIVACAINE LIPOSOME 13.3 MG/ML VIAL INJ ONE (07:00)
[2018-11-10] MEDS: VANCOMYCIN HCL INJ 1,000 MG VIAL IVPB ONE ×2 (07:48→08:48)
[2018-11-10] MEDS: ceFAZolin SODIUM 1 GM VIAL ONE ×2 (07:48→08:48)
[2018-11-10] MEDS: BUPIVACAINE 0.5% 30 ML VIAL INJ ONE ×2 (07:49→08:48)
[2018-11-10] MEDS: BUPIVACAINE LIPOSOME 13.3 MG/ML VIAL INJ ONE ×2 (07:49→08:48)
[2018-11-10] MEDS ORDERED: MORPHINE SULFATE INJ 10 MG/ML VIAL IM PRN (09:18)
[2018-11-10] MEDS ORDERED: PROMETHAZINE HCL INJ 12.5 MG in SODIUM CHLORIDE 0.9% 50ML 50 ML IVPB PRN (09:18)
[2018-11-10] MEDS ORDERED: ACETAMINOPHEN 500 MG TAB PO PRN (09:18)
[2018-11-10] MEDS ORDERED: TRANEXAMIC ACID INJ 1,000 MG in SODIUM CHLORIDE 0.9% 100ML 100 ML IVPB ONE (09:18)
[2018-11-10] MEDS ORDERED: DEX 5% W/NACL 0.45% 1000ML 1,000 ML IVS PRN (09:18)
[2018-11-10] MEDS ORDERED: ONDANSETRON INJ 4 MG/2 ML VIAL IV PRN (09:18)
[2018-11-10] MEDS ORDERED: NALOXONE HCL INJ 0.4 MG/ML VIAL IV PRN (09:18)
[2018-11-10] MEDS ORDERED: ALUMINUM & MAGNESIUM HYDROXIDE 30 ML UD PO PRN (09:18)
[2018-11-10] MEDS ORDERED: TEMAZEPAM 15 MG CAP PO PRN (09:18)
[2018-11-10] MEDS ORDERED: BISACODYL SUPPOSITORY 10 MG PR PRN (09:18)
[2018-11-10] MEDS ORDERED: BENZOCAINE-MENTH LOZ (CEPACOL) 1 EA LOZ MT PRN (09:18)
[2018-11-10] MEDS ORDERED: PROMETHAZINE HCL INJ 25 MG in SODIUM CHLORIDE 0.9% 50ML 50 ML IVPB PRN (09:18)
[2018-11-10] MEDS ORDERED: ACETAMINOPHEN 325 MG TAB PO PRN (09:18)
[2018-11-10] MEDS ORDERED: MORPHINE SULFATE INJ 10 MG/ML VIAL IV PRN (09:18)
[2018-11-10] MEDS ORDERED: MAGNESIUM HYDROXIDE 30 ML UD PO PRN (09:18)
[2018-11-10] MEDS ORDERED: SODIUM CHLORIDE 0.9% (FLUSH) 10 ML SYG IV PRN (09:18)
[2018-11-10] MEDS ORDERED: ZOLPIDEM TARTRATE 5 MG TAB PO PRN (09:18)
[2018-11-10] MEDS ORDERED: MORPHINE PCA 1 MG/ML 100 ML BAG IVPB SCH (09:30)
[2018-11-10] MEDS ORDERED: METOCLOPRAMIDE HCL INJ 10 MG/2 ML VIAL IV ONE (10:00)
[2018-11-10] MEDS ORDERED: raNITIdine HCL INJ 25 MG/ML VIAL IV ONE (10:00)
[2018-11-10] MEDS ORDERED: DEXAMETHASONE INJ 10 MG/ML VIAL IV ONE (10:00)
[2018-11-10] MEDS ORDERED: ePHEDrine SULF 50 MG/ML IV ONE (10:00)
[2018-11-10] MEDS ORDERED: PROPOFOL 200 MG/20 ML VIAL IV ONE (10:00)
[2018-11-10] MEDS ORDERED: LIDOCAINE 1% 10 ML VIAL INJ ONE (10:00)
[2018-11-10] MEDS ORDERED: SODIUM CHLORIDE 0.45% 1000ML 1,000 ML IVS ONE (10:31)
[2018-11-10] MEDS ORDERED: SODIUM CHLORIDE 0.45% 1000ML 1,000 ML IVS PRN (10:45)
--- NOTE | 2018-11-10 10:55 | RAD ---
EXAM DESCRIPTION: Knee,Right 2 or More Views CLINICAL HISTORY: 83 years Female, TKA TECHNIQUE: 3 views of the right knee were performed. COMPARISON: None available. FINDINGS: The visualized bones appear well mineralized. No acute fracture or dislocation. Changes of total knee arthroplasty are identified with expected postsurgical changes in the surrounding soft tissues. IMPRESSION: Changes of total knee arthroplasty are identified with expected postsurgical changes in the surrounding soft tissues. Electronically signed by: Martine Hurst MD 11/10/2018 10:53 AM [facility]
[2018-11-10] MEDS ORDERED: DEXTROSE 50% 25 GM/50 ML SYG IV PRN (11:17)
[2018-11-10] MEDS ORDERED: GLUCAGON INJ 1 MG VIAL SUBCU PRN (11:17)
[2018-11-10] MEDS: IV SET AND CAP CHANGE INJ INJ SCH (13:40)
[2018-11-10] MEDS: INSULIN LISPRO 100 UNITS/ML PEN SUBCU SCH ×3 (13:48→21:09)
[2018-11-10] MEDS ORDERED: ceFAZolin SODIUM 2 GRAMS PREMI 2 GM in PREMIX BAG 1 BAG IVPB SCH (16:00)
[2018-11-10] MEDS ORDERED: SODIUM CHL 0.9% 50ML MIN-BAG+ 50 ML IVPB ONE ×2 (16:46→19:09)
[2018-11-10] MEDS: ceFAZolin SODIUM 1 GM in SODIUM CHL 0.9% 50ML MIN-BAG+ 50 ML IVPB SCH ×2 (16:52→23:37)
[2018-11-10] MEDS: metFORMIN HCL 500 MG TAB PO SCH (16:53)
[2018-11-10] MEDS: CELECOXIB 100 MG CAP PO SCH (17:21)
[2018-11-10] MEDS: VANCOMYCIN HCL INJ 1,000 MG in SODIUM CHLORIDE 0.9% 250ML 250 ML IVPB SCH (18:43)
[2018-11-10] MEDS ORDERED: ENOXAPARIN SODIUM 30 MG/0.3 ML SYG SUBCU ONE (19:09)
[2018-11-10] MEDS: DOCUSATE CALCIUM 240 MG CAP PO SCH (20:37)
[2018-11-10] MEDS: METOPROLOL SUCCINATE XL 25 MG TAB PO SCH (20:37)
[2018-11-10] MEDS: LOSARTAN POTASSIUM 25 MG TAB PO SCH (20:37)
[2018-11-10] MEDS: SIMVASTATIN 20 MG TAB PO SCH (20:37)
--- NOTE | 2018-11-10 20:48 | CONS ---
DATE OF CONSULTATION: 11/10/18 SUPERVISING PHYSICIAN: Pa Pack M.D. REASON FOR CONSULTATION: Postoperative total right knee arthroplasty. HISTORY OF PRESENT ILLNESS: Ms. Ballard is an 83 year-old female patient with a longstanding history of arthritis involving both knees but worse on the right. She has seen Dr. Rico in the outpatient setting and has had multiple attempts at conservative measures for treatment of her pain. She has failed to gain any significant relief and it is interfering with her activities of daily living. She has now requested elective operative intervention with a total right knee arthroplasty. She was admitted today for elective total right knee arthroplasty. She had no complications intraoperatively and was seen immediately in the postoperative state. She was in stable condition. PAST MEDICAL HISTORY: 1. Chronica trial fibrillation. 2. Hyperlipidemia. 3. Hypertension. 4. Pulmonary hypertension. 5. Gastroesophageal reflux disease. 6. Diabetes mellitus type 2. 7. Osteoporosis. 8. Migraine headaches. 9. Questionable Parkinson's disease. PAST SURGICAL HISTORY: 1. Tonsillectomy. 2. Tubal ligation. 3. Basal cell carcinoma of left axilla with radiation therapy. 4. Dental surgery. 5. Ganglion cyst surgery on the wrist. 6. Esophagogastroduodenoscopy and colonoscopy. HOME MEDICATIONS: 1. Zocor 20 mg at bedtime. 2. Potassium chloride 20 mEq daily. 3. Omeprazole 20 mg as needed. 4. Multiple vitamin 1 tablet daily. 5. Toprol XL 50 mg at bedtime 6. Metformin 500 mg daily. 7. Losartan 50 mg daily. 8. Neurontin 300 mg as needed. 9. Lasix 40 mg daily. 10. Premarin 0.3 mg Sundays, Tuesdays, and Saturdays. 11. Digoxin 0.125 mg daily. 12. Pradaxa 75 mg b.i.d. 13. Calcium supplement with Vitamin D 1 tablet daily. 14. Vitamin C 1 daily. 15. Tylenol 650 mg every 6 hours as needed for pain. ALLERGIES: PENICILLINS. FAMILY HISTORY: Father in his 40s from heart disease. Mother in her 70s from pancreatic cancer. She also had type 2 diabetes mellitus. She has 1 brother that of a stroke. Her sister had Quitman's disease and after valve replacement surgery. SOCIAL HISTORY: The patient is , retired. She is a nonsmoker and nondrinker and has never used illicit drugs. She lives in [place], [place]. REVIEW OF SYSTEMS: No fevers, chills. No recent weight loss or gain. HEENT: No headaches, vision changes, ear pain, nasal congestion or sore throat. RESPIRATORY: No cough, hemoptysis, pleuritic chest pains or wheezing. CARDIOVASCULAR: No chest pains, palpitations or peripheral edema. GASTROINTESTINAL: No nausea, vomiting, diarrhea, constipation or abdominal pains. GENITOURINARY: No dysuria, frequency or flank pain. HEMATOLOGIC: Positive for easy bruising but on Pradaxa. No history of transfusion reactions. MUSCULOSKELETAL: As noted in History of Present Illness. ENDOCRINE: No polydipsia, polyuria or polyphagia. Positive for type 2 diabetes mellitus but no heat or cold intolerance. NEUROLOGIC: No syncope, paresthesias, seizures, ataxia or other focal deficits. PHYSICAL EXAMINATION: VITAL SIGNS: Temperature 97.7, pulse 69, blood pressure 156/73, respirations 16, satting 97% on 2 liters nasal cannula. Admission weight is 63.5 kg. GENERAL: The patient is seen immediately in the postoperative state, just in the room. She is resting. She has an Iceman in place overlying her right knee. She is alert, slightly drowsy. Easily aroused and seems to be in no acute distress. HEENT: Tympanic membranes are clear bilaterally. Oropharynx is pink and moist without any lesions. NECK: Supple, non-tender. Full range of motion. No jugular venous distention. CHEST: Clear to auscultation bilaterally without any rhonchi, wheezing or rales. HEART: Regular rate and rhythm without appreciable murmurs, gallops, or rubs. ABDOMEN: Soft, non-tender. Positive bowel sounds. EXTREMITIES: Right knee has a dressing in place with an Iceman. Pulses distally bilaterally are 2+. Capillary refill is brisk. NEUROLOGIC: She is alert and oriented times three. LABORATORY: Postoperative H&H is pending. ASSESSMENT: 1. Progressive arthritis of the right knee requiring elective total right knee arthroplasty for symptom control performed by Dr. Chang Rico, orthopedic surgeon. Postoperative day 0. 2. History of chronic atrial fibrillation with controlled ventricular rate on Pradaxa and Digoxin. 3. History of hypertension. 4. History of pulmonary hypertension with no current echocardiogram available for review. 5. Gastroesophageal reflux disease. 6. Type 2 diabetes mellitus on oral therapy. 7. History of migraine headaches. PLAN: Will review the patient's medications and continue those as needed as they are updated. Will start her on insulin sliding scale per protocol. She will be on DVT prophylaxis with reinitiation of her Pradaxa tomorrow, actually that is Dr. Rico's preference. Will follow her as she progresses with physical therapy and rehabilitation efforts. Will defer orthopedic decision and management to Dr. Rico and physical therapist. In talking with the family, and , the plan at this point is to go home with home health PT and then after several days [facility]. Will anticipate her length of stay to be 2 to 3 days. Until she can transition to outpatient management will continue to monitor and treat as needed. [facility][id number] [facility]
[2018-11-10] MEDS: ENOXAPARIN SODIUM 30 MG/0.3 ML SYG SUBCU SCH (22:34)
[2018-11-11] MEDS ORDERED: SODIUM CHLORIDE 0.9% 250ML 250 ML ONE (05:00)
[2018-11-11] MEDS ORDERED: VANCOMYCIN HCL INJ 1,000 MG VIAL IVPB ONE (05:01)
[2018-11-11] MEDS: POTASSIUM CHLORIDE 20 MEQ TAB PO SCH (06:10)
[2018-11-11] MEDS: VANCOMYCIN HCL INJ 1,000 MG in SODIUM CHLORIDE 0.9% 250ML 250 ML IVPB SCH (06:10)
--- NOTE | 2018-11-11 08:31 | PN ---
DATE: 11/10/18 POSTOPERATIVE CHECK SUBJECTIVE: Ms. Ballard is doing well and she has no pain right now. OBJECTIVE: Afebrile. Vital signs stable. Dressing is clean, dry and intact. ASSESSMENT: Status post total knee arthroplasty. PLAN: She will begin weightbearing tolerated on postoperative day 1. #[id number] [facility]TDD
[2018-11-11] MEDS: INSULIN LISPRO 100 UNITS/ML PEN SUBCU SCH ×4 (08:32→21:14)
--- NOTE | 2018-11-11 08:32 | PN ---
DATE: 11/11/18 SUBJECTIVE: Ms. Ballard is doing well and she has no significant pain. OBJECTIVE: Afebrile. Vital signs stable. Dressing is clean, dry and intact. ASSESSMENT: Status post total knee arthroplasty. PLAN: She will begin weightbearing as tolerated today and increase her CPM as tolerated. #[id number] [facility]TDD
[2018-11-11] MEDS ORDERED: ceFAZolin SODIUM 2 GRAMS PREMI 50 ML IVPB ONE (08:36)
[2018-11-11] MEDS: CALCIUM CARBONATE-VITAMIN D 500 MG TAB PO SCH (08:47)
[2018-11-11] MEDS: DIGOXIN 0.125 MG TAB PO SCH (08:47)
[2018-11-11] MEDS: FUROSEMIDE 40 MG TAB PO SCH (08:47)
[2018-11-11] MEDS: MULTIPLE VITAMIN 1 EA TAB PO SCH (08:47)
[2018-11-11] MEDS: MAGNESIUM OXIDE 400 MG TAB PO SCH (08:48)
[2018-11-11] MEDS: CELECOXIB 100 MG CAP PO SCH ×2 (08:48→17:15)
[2018-11-11] MEDS ORDERED: ceFAZolin SODIUM 1 GM VIAL ONE (09:00)
[2018-11-11] MEDS ORDERED: SODIUM CHL 0.9% 50ML MIN-BAG+ 50 ML IVPB ONE (09:00)
[2018-11-11] MEDS: ceFAZolin SODIUM 1 GM in SODIUM CHL 0.9% 50ML MIN-BAG+ 50 ML IVPB SCH (09:05)
--- NOTE | 2018-11-11 09:48 | OP ---
DATE OF PROCEDURE: 11/10/18 PREOPERATIVE DIAGNOSIS: 1. Osteoarthritis of the knee. POSTOPERATIVE DIAGNOSIS: 1. Osteoarthritis of the knee. PROCEDURE: 1. Total knee arthroplasty. SURGEON: Chang Rico MD. FROTHING MACHINE OPERATOR: Frank Nolasco CST, SA-C. ANESTHESIA: General anesthesia. COMPLICATIONS: None. FINDINGS: Severe arthritis of the knee. INDICATION: Ms. Ballard has a history of severe pain associated with her knee arthritis. Unfortunately, she has been unable to get relief with conservative measures. Because of her ongoing pain and failure of conservative measures, she has requested operative intervention. After discussing the risks, benefits and alternatives to that, the patient has given informed consent for total knee arthroplasty. PROCEDURE: The patient was brought to the Operating Room and placed in supine position. General anesthesia was induced and the patient's leg was sterilely prepped and draped. Following prepping and draping, the distal femur was exposed and using an intramedullary guide, the distal femoral cut was made. The appropriate sized cutting block was measured, pinned into place, and the anterior, posterior, and chamfer cuts were made. The ACL was transected and the tibia was subluxed. Both the medial and lateral menisci were removed. An intramedullary guide was used to make the proximal tibial cut. The appropriate sized base plate was placed and a trial polyethylene was placed. The trial femur was placed, the knee was reduced, and the knee was taken through a range of motion. The knee was stable in anterior, posterior, varus and valgus stress. The patella tracked anatomically without evidence of subluxation or dislocation. After trialing, the trial components were removed and the bony surfaces were thoroughly irrigated with saline. Following irrigation, the surfaces were dried and the final components were cemented into place. The excess cement was removed and the remaining cement was allowed to cure. The knee was again taken through a range of motion to confirm stability. The wound was then irrigated with saline and closure was performed using PDS to approximate the arthrotomy followed by closure of the subcutaneous tissues with a combination of running and interrupted Monocryl sutures. Sterile dressing was placed. The patient was awoken from anesthesia and taken to Recovery. POSTOPERATIVE PLAN: The patient will be weight-bearing as tolerated on postoperative day 1. COMPONENTS: Eneedo Triathlon knee, size 4 femur, size 3 tibia, 9 mm insert. #[id number] MTDD
[2018-11-11] MEDS: ESTROGENS CONJUGATED 0.3 MG PO SCH (12:43)
[2018-11-11] MEDS: ENOXAPARIN SODIUM 30 MG/0.3 ML SYG SUBCU SCH ×2 (12:45→22:54)
--- NOTE | 2018-11-11 15:28 | PN ---
SUPERVISING PHYSICIAN: Tash Pack MD DATE: 11/11/18 SUBJECTIVE: The patient is lying in bed. Her right knee is in the CPM machine. She has complained of some mild nausea, but it is just transient. She has not used any antiemetics. She denies constipation, abdominal pain, chest pain or shortness of breath. OBJECTIVE: VITAL SIGNS: Temperature 98.7. Heart rate 81. Blood pressure 138/76. Respiratory rate 20. O2 saturation 94% on room air. RESPIRATORY: Essentially clear to auscultation bilaterally. CARDIAC: Regular rate and rhythm. GASTROINTESTINAL: Abdomen is soft, nondistended, nontender. Bowel sounds are positive. EXTREMITIES: Her right knee is in the CPM machine. Her dressing with Reynaldo bandage is dry and intact. Bilateral pedal pulses are palpable at +2. NEUROLOGIC: Awake, alert and oriented times three. LABORATORY: Hemoglobin 11.7, hematocrit 34.7. Blood sugars have run between 133 and 164. All other labs and films have been reviewed via the EMR. ASSESSMENT: 1. Progressive arthritis of the right knee requiring elective total right knee arthroplasty for symptom control performed by Dr. Chang Rico, orthopedic surgeon. Postoperative day 1. 2. History of chronic atrial fibrillation with controlled ventricular rate on Pradaxa and digoxin. 3. History of hypertension. 4. History of pulmonary hypertension. 5. Gastroesophageal reflux disease. 6. Diabetes mellitus, type 2. 7. History of migraine headaches. PLAN: We will continue present supportive care. Orthopedic issues will be per Dr. Chang Rico, orthopedic surgeon. She will continue with physical therapy for strengthening and rehab with our physical therapy department. She has elected to have home health on discharge, but has not decided on agency yet. Her is going to make a few calls before deciding. Otherwise, I have encouraged good pulmonary hygiene. We will continue to monitor the patient closely and follow as needed. [facility][id number] [facility]
[2018-11-11] MEDS: metFORMIN HCL 500 MG TAB PO SCH (17:15)
[2018-11-11] MEDS ORDERED: METOPROLOL SUCCINATE XL 50 MG TAB ONE (19:03)
[2018-11-11] MEDS: DOCUSATE CALCIUM 240 MG CAP PO SCH (20:49)
[2018-11-11] MEDS: METOPROLOL SUCCINATE XL 25 MG TAB PO SCH (20:50)
[2018-11-11] MEDS: LOSARTAN POTASSIUM 25 MG TAB PO SCH (20:51)
[2018-11-11] MEDS: SIMVASTATIN 20 MG TAB PO SCH (20:51)
[2018-11-11] MEDS: traMADol HCL 50 MG TAB PO PRN (20:52)
[2018-11-12] MEDS: traMADol HCL 50 MG TAB PO PRN (04:01)
[2018-11-12] MEDS: POTASSIUM CHLORIDE 20 MEQ TAB PO SCH (06:08)
[2018-11-12] MEDS: HYDROcodone 5MG/APAP 325MG 1 EA TAB PO PRN ×3 (06:32→19:10)
[2018-11-12] MEDS: INSULIN LISPRO 100 UNITS/ML PEN SUBCU SCH ×4 (07:38→21:09)
[2018-11-12] MEDS: CELECOXIB 100 MG CAP PO SCH ×2 (07:55→17:10)
[2018-11-12] MEDS: CYCLOBENZAPRINE HCL 10 MG TAB PO PRN ×2 (07:56→19:11)
--- NOTE | 2018-11-12 08:45 | PN ---
DATE: 11/12/18 SUBJECTIVE: She is doing really well today. She is up to the chair with the knee bent comfortably at 90 degrees. OBJECTIVE: Afebrile. Vital signs stable. Wound is clean. There are no signs or symptoms of infection. ASSESSMENT: Status post total knee arthroplasty. PLAN: The plan at this point is for her to continue with physical therapy as well as her CPM. #[id number] [facility]TDD
[2018-11-12] MEDS: DIGOXIN 0.125 MG TAB PO SCH (10:10)
[2018-11-12] MEDS: MULTIPLE VITAMIN 1 EA TAB PO SCH (10:10)
[2018-11-12] MEDS: CALCIUM CARBONATE-VITAMIN D 500 MG TAB PO SCH (10:10)
[2018-11-12] MEDS: FUROSEMIDE 40 MG TAB PO SCH (10:10)
[2018-11-12] MEDS: MAGNESIUM OXIDE 400 MG TAB PO SCH (10:11)
[2018-11-12] MEDS: SODIUM CHLORIDE 0.9% (FLUSH) 10 ML SYG IV SCH ×2 (10:11→20:37)
[2018-11-12] MEDS: ENOXAPARIN SODIUM 30 MG/0.3 ML SYG SUBCU SCH ×2 (11:07→23:45)
[2018-11-12] MEDS: metFORMIN HCL 500 MG TAB PO SCH (17:10)
[2018-11-12] MEDS: LOSARTAN POTASSIUM 25 MG TAB PO SCH (20:35)
[2018-11-12] MEDS: SIMVASTATIN 20 MG TAB PO SCH (20:36)
[2018-11-12] MEDS: DOCUSATE CALCIUM 240 MG CAP PO SCH (20:36)
[2018-11-12] MEDS: METOPROLOL SUCCINATE XL 25 MG TAB PO SCH (20:36)
--- NOTE | 2018-11-12 22:19 | PN ---
DATE: 11/12/18 SUPERVISING PHYSICIAN: Pa Pack M.D. SUBJECTIVE: The patient is sitting up in her chair. She is eating her lunch. She has no complaints of shortness of breath, nausea, vomiting, diarrhea or constipation. I discussed with the patient and her her discharge planning. She is not making good progress with physical therapy and it is recommended that she go to a more intense rehab facility. At this point the has decided to make some phone calls about which facility he would like to have his transfer to, but most likely it will be [facility] in [place]. OBJECTIVE: VITAL SIGNS: Temperature 98, heart rate 74, blood pressure 162/68, respiratory rate 16, O2 sat 94% on room air. RESPIRATORY: Essentially clear to auscultation bilaterally. CARDIAC: Regular rate and rhythm. GASTROINTESTINAL: Abdomen is soft, nondistended, non-tender. Bowel sounds are positive. EXTREMITIES: Bilateral pedal pulses are +2 and palpable. The dressing to her right knee is dry and intact. NEUROLOGIC: She is awake and alert. LABORATORY: Blood sugars have run between 145 and 172. All other labs and films have been reviewed via the EMR. ASSESSMENT: 1. Progressive arthritis of the right knee requiring elective total right knee arthroplasty for symptom control performed by Dr. Chang Rico, orthopedic surgeon. Postoperative day 2. 2. History of chronic atrial fibrillation with controlled ventricular rate on Pradaxa and digoxin. 3. History of hypertension. 4. History of pulmonary hypertension. 5. Gastroesophageal reflux disease. 6. Diabetes mellitus, type 2. 7. History of migraine headaches. PLAN: We will continue present supportive care. Short term goals and conditioning will be per Physical Therapy. Orthopedic issues will be per Dr. Chang Rico, orthopedic surgeon. Hopefully her and she will decide what rehab facility she should be transferred to and we will get her transferred either tomorrow or the next day. Meanwhile we encourage good pulmonary hygiene. Will continue to monitor closely and follow as needed. [facility][id number] [facility]
[2018-11-13] MEDS: POTASSIUM CHLORIDE 20 MEQ TAB PO SCH (06:07)
[2018-11-13] MEDS: traMADol HCL 50 MG TAB PO PRN (06:07)
[2018-11-13] MEDS: CELECOXIB 100 MG CAP PO SCH ×2 (08:02→17:00)
[2018-11-13] MEDS: INSULIN LISPRO 100 UNITS/ML PEN SUBCU SCH ×4 (08:02→21:05)
[2018-11-13] MEDS: DIGOXIN 0.125 MG TAB PO SCH (09:14)
[2018-11-13] MEDS: FUROSEMIDE 40 MG TAB PO SCH (09:14)
[2018-11-13] MEDS: MAGNESIUM OXIDE 400 MG TAB PO SCH (09:14)
[2018-11-13] MEDS: CALCIUM CARBONATE-VITAMIN D 500 MG TAB PO SCH (09:14)
[2018-11-13] MEDS: MULTIPLE VITAMIN 1 EA TAB PO SCH (09:14)
[2018-11-13] MEDS: IV SET AND CAP CHANGE INJ INJ SCH (09:15)
[2018-11-13] MEDS: SODIUM CHLORIDE 0.9% (FLUSH) 10 ML SYG IV SCH ×2 (09:15→20:45)
[2018-11-13] MEDS: ESTROGENS CONJUGATED 0.3 MG PO SCH (11:59)
[2018-11-13] MEDS: ENOXAPARIN SODIUM 30 MG/0.3 ML SYG SUBCU SCH ×2 (11:59→22:39)
[2018-11-13] MEDS: metFORMIN HCL 500 MG TAB PO SCH (17:00)
[2018-11-13] MEDS: DOCUSATE CALCIUM 240 MG CAP PO SCH (20:33)
[2018-11-13] MEDS: LOSARTAN POTASSIUM 25 MG TAB PO SCH (20:33)
[2018-11-13] MEDS: METOPROLOL SUCCINATE XL 25 MG TAB PO SCH (20:33)
[2018-11-13] MEDS: CYCLOBENZAPRINE HCL 10 MG TAB PO PRN (20:34)
[2018-11-13] MEDS: HYDROcodone 5MG/APAP 325MG 1 EA TAB PO PRN (20:34)
[2018-11-13] MEDS: SIMVASTATIN 20 MG TAB PO SCH (20:34)
[2018-11-13] MEDS ORDERED: MAGNESIUM HYDROXIDE 30 ML UD PO ONE (21:00)
[2018-11-13] MEDS ORDERED: BISACODYL SUPPOSITORY 10 MG PR ONE (21:00)
[2018-11-14] MEDS: traMADol HCL 50 MG TAB PO PRN (05:59)
[2018-11-14] MEDS: POTASSIUM CHLORIDE 20 MEQ TAB PO SCH (06:12)
[2018-11-14] MEDS: INSULIN LISPRO 100 UNITS/ML PEN SUBCU SCH ×4 (07:08→21:18)
[2018-11-14] MEDS: CELECOXIB 100 MG CAP PO SCH ×2 (07:23→17:08)
--- NOTE | 2018-11-14 08:10 | PN ---
DATE: 11/13/18 SUPERVISING PHYSICIAN: Pa Pack M.D. SUBJECTIVE: The patient is sitting up in her chair in her room. Her is at her bedside. We discussed her discharge at length and her had decided she would be going to [facility] in [place]. I informed the patient and her that they had been contacted and all the appropriate paper work had been sent but that due to the weekend, there may be some delay on transferring. It may be tomorrow or actually Thursday. They agreed that would be fine. She will be continued with her physical therapy here at the hospital. She denies chest pain, nausea, vomiting, diarrhea or constipation. OBJECTIVE: VITAL SIGNS: Temperature 98.1, heart rate 85, blood pressure 175/77, respiratory rate 18, O2 sat 93% on room air. RESPIRATORY: Essentially clear to auscultation bilaterally. CARDIAC: Regular rate and rhythm. GASTROINTESTINAL: Abdomen is soft, nondistended, non-tender. Bowel sounds are positive. EXTREMITIES: The dressing to her right knee is dry and intact. There is minimal swelling of the right knee. No erythema. Bilateral pedal pulse are palpable at +2. NEUROLOGIC: She is awake and alert. LABORATORY: There are no labs or films to report at this time. ASSESSMENT: 1. Progressive arthritis of the right knee requiring elective total right knee arthroplasty for symptom-control performed by Dr. Chang Rico, orthopedic surgeon, postoperative day #3. 2. History of chronic atrial fibrillation with controlled ventricular rate on Pradaxa and digoxin. 3. History of hypertension. 4. History of pulmonary hypertension. 5. Gastroesophageal reflux disease. 6. Diabetes mellitus, type 2. 7. History of migraine headaches. PLAN: We will continue present supportive care. She will continue with physical therapy for strengthening and conditioning. Orthopedic issues will be per Dr. Chang Rico, orthopedic surgeon. Her blood pressure has been slightly elevated, we will watch that in case we needs to make some adjustments to her medications. All the appropriate work has been sent to [facility] and we are just waiting for acceptance from them so she can continue her rehabilitation at their facility in [place]. We encouraged good pulmonary hygiene and will continue to monitor closely and follow as needed. [facility][id number] [facility]
[2018-11-14] MEDS: DIGOXIN 0.125 MG TAB PO SCH (08:53)
[2018-11-14] MEDS: CALCIUM CARBONATE-VITAMIN D 500 MG TAB PO SCH (08:53)
[2018-11-14] MEDS: MAGNESIUM OXIDE 400 MG TAB PO SCH (08:54)
[2018-11-14] MEDS: MULTIPLE VITAMIN 1 EA TAB PO SCH (08:54)
[2018-11-14] MEDS: SODIUM CHLORIDE 0.9% (FLUSH) 10 ML SYG IV SCH ×2 (08:54→21:02)
[2018-11-14] MEDS: FUROSEMIDE 40 MG TAB PO SCH (08:54)
[2018-11-14] MEDS: ESTROGENS CONJUGATED 0.3 MG PO SCH (11:14)
[2018-11-14] MEDS: ENOXAPARIN SODIUM 30 MG/0.3 ML SYG SUBCU SCH ×2 (11:14→21:01)
--- NOTE | 2018-11-14 14:32 | PN ---
DATE: 11/14/18 SUPERVISING PHYSICIAN: Pa Pack M.D. SUBJECTIVE: The patient is sitting up in her chair eating lunch. She has no complaints of nausea, vomiting, diarrhea, constipation, chest pain or shortness of breath. Her is at the bedside. We discussed that she would most likely go to [facility] in the morning. He was going to go home and pack her clothing for her transfer in the morning. OBJECTIVE: VITAL SIGNS: Temperature 98.2, heart rate 88, blood pressure 156/73, respiratory rate 16, O2 sat 95% on room air. RESPIRATORY: Essentially clear to auscultation bilaterally. CARDIAC: Regular rate and rhythm. EXTREMITIES: Her right knee has a dressing that is dry and intact. Minimal swelling on the right knee and no erythema. Bilateral pedal pulses are palpable at +2. NEUROLOGIC: She is awake, alert and oriented times three. LABORATORY: There are no labs and films to report at this time with the exception of her blood sugars have ranged from 92 to 173. ASSESSMENT: 1. Progressive arthritis of the right knee requiring elective total right knee arthroplasty for symptom-control performed by Dr. Chang Rico, orthopedic surgeon, postoperative day #4. 2. History of chronic atrial fibrillation with controlled ventricular rate on Pradaxa and digoxin. 3. History of hypertension. 4. History of pulmonary hypertension. 5. Gastroesophageal reflux disease. 6. Diabetes mellitus, type 2. 7. History of migraine headaches. PLAN: We will continue present supportive care. She will continue her physical therapy for strengthening and conditioning until she can be transferred to [facility] facility in [place]. Plan for transfer is in the morning. Orthopedic issues will be per Dr. Chang Rico. Otherwise we will continue to monitor closely and follow as needed. #[id number] [facility]
[2018-11-14] MEDS: metFORMIN HCL 500 MG TAB PO SCH (17:08)
[2018-11-14] MEDS: DOCUSATE CALCIUM 240 MG CAP PO SCH (21:01)
[2018-11-14] MEDS: SIMVASTATIN 20 MG TAB PO SCH (21:01)
[2018-11-14] MEDS: METOPROLOL SUCCINATE XL 25 MG TAB PO SCH (21:02)
[2018-11-14] MEDS: LOSARTAN POTASSIUM 25 MG TAB PO SCH (21:02)
[2018-11-14] MEDS: HYDROcodone 5MG/APAP 325MG 1 EA TAB PO PRN (21:41)
[2018-11-15] MEDS: POTASSIUM CHLORIDE 20 MEQ TAB PO SCH (06:07)
[2018-11-15] MEDS: INSULIN LISPRO 100 UNITS/ML PEN SUBCU SCH ×3 (07:21→17:02)
[2018-11-15] MEDS: CELECOXIB 100 MG CAP PO SCH ×2 (08:18→17:52)
[2018-11-15] MEDS: HYDROcodone 5MG/APAP 325MG 1 EA TAB PO PRN (08:19)
[2018-11-15] MEDS: DIGOXIN 0.125 MG TAB PO SCH (09:36)
[2018-11-15] MEDS: MULTIPLE VITAMIN 1 EA TAB PO SCH (09:36)
[2018-11-15] MEDS: MAGNESIUM OXIDE 400 MG TAB PO SCH (09:37)
[2018-11-15] MEDS: SODIUM CHLORIDE 0.9% (FLUSH) 10 ML SYG IV SCH (09:37)
[2018-11-15] MEDS: CALCIUM CARBONATE-VITAMIN D 500 MG TAB PO SCH (09:37)
[2018-11-15] MEDS: FUROSEMIDE 40 MG TAB PO SCH (09:41)
[2018-11-15] MEDS: ENOXAPARIN SODIUM 30 MG/0.3 ML SYG SUBCU SCH (11:36)
[2018-11-15 13:41] VITALS: BP 146/77; TEMP 98.1; O2SAT 98
[2018-11-15] MEDS ORDERED: HYDROcodone 5MG/APAP 325MG 1 EA TAB ONE (14:04)
[2018-11-15] MEDS ORDERED: HYDROcodone 5MG/APAP 325MG 1 EA TAB PO ONE (14:25)
[2018-11-15] MEDS: metFORMIN HCL 500 MG TAB PO SCH (17:53)
--- NOTE | 2018-12-01 08:52 | DS ---
SUPERVISING PHYSICIAN: Vince Felix MD ADMISSION DIAGNOSES: 1. Progressive arthritis of the right knee requiring elective total right knee arthroplasty for symptom control performed by Dr. Chang Rico, orthopedic surgeon. Postoperative day 0. 2. History of chronic atrial fibrillation with controlled ventricular rate on Pradaxa and Digoxin. 3. History of hypertension. 4. History of pulmonary hypertension with no current echocardiogram available for review. 5. Gastroesophageal reflux disease. 6. Type 2 diabetes mellitus on oral therapy. 7. History of migraine headaches. DISCHARGE DIAGNOSES: 1. Progressive arthritis of the right knee requiring elective total right knee arthroplasty for symptom-control performed by Dr. Chang Rico, orthopedic surgeon, postoperative day #5. 2. History of chronic atrial fibrillation with controlled ventricular rate on Pradaxa and digoxin. 3. History of hypertension. 4. History of pulmonary hypertension. 5. Gastroesophageal reflux disease. 6. Diabetes mellitus, type 2. 7. History of migraine headaches. REASON FOR HOSPITALIZATION: Ms. Ballard is an 83 year-old female patient with a longstanding history of arthritis involving both knees but worse on the right. She has seen Dr. Rico in the outpatient setting and has had multiple attempts at conservative measures for treatment of her pain. She has failed to gain any significant relief and it is interfering with her activities of daily living. She has now requested elective operative intervention with a total right knee arthroplasty. She was admitted today for elective total right knee arthroplasty. She had no complications intraoperatively and was seen immediately in the postoperative state. She was in stable condition. LABORATORY: CBC showed stable hemoglobin at 11.9 and hematocrit 35.0. Chemistries showing sodium 132, BUN 34, creatinine 0.99, blood sugars ran between 92 and 173. Liver functions were all within normal limits. Urine drug screen was all negative. MICROBIOLOGY: No microbiology specimens. RADIOLOGY: No additional radiographic studies to review. HOSPITAL COURSE: Ms. Ballard was admitted for elective total right knee arthroplasty on 11/10/18. She had no intraoperative complications. She was followed postoperatively, responded to treatment and physical therapy and was showing no complications and clinically improving. Therefore, it was felt the patient was able to be discharged to continue outpatient management. PLAN: Ms. Ballard was discharged on 11/15/18 with instructions to followup with Dr. Rico as scheduled. She is to have continued rehabilitation at [facility]. All medications were resumed as per medical administration record. Physical therapy is to evaluate and treat. Condition on discharge was stable and improving. DISPOSITION: The patient was discharged and admitted to [facility]. #[id number] MTDD
== END 2018-11-15 18:32 | DRG 470 ==
LOC: AMB 06:00 → MS 10:20
PROVIDERS: ADMIT Orthopaedic Surgery; ATTEND Orthopaedic Surgery
PROC: 3E0T3BZ Introduction of Anesthetic Agent into Peripheral Nerves and Plexi, Percutaneous Approach (ICD-10-PCS; 2018-11-10)
PROC: 0SRC0J9 Replacement of Right Knee Joint with Synthetic Substitute, Cemented, Open Approach (ICD-10-PCS; principal; 2018-11-10 07:02)
DX: M17.11 Unilateral primary osteoarthritis, right knee (principal); I10 Essential (primary) hypertension; E11.9 Type 2 diabetes mellitus without complications; I48.2 Chronic atrial fibrillation; K21.9 Gastro-esophageal reflux disease without esophagitis; E78.5 Hyperlipidemia, unspecified; I27.20 Pulmonary hypertension, unspecified; M81.0 Age-related osteoporosis without current pathological fracture; Z88.0 Allergy status to penicillin; Z79.84 Long term (current) use of oral hypoglycemic drugs; Z79.899 Other long term (current) drug therapy

== ENCOUNTER → 2019-07-26 | Outpatient (CLI) | payer MEDICARE, BC ==
--- NOTE | 2019-07-26 12:08 | US ---
EXAM DESCRIPTION: Carotid Duplex: ULTRASOUND. CLINICAL HISTORY: 84 years Female Occlusion and stenosis of bilateral carotid arteries COMPARISON: Brain MRI November [address] scan of the head April 2018. TECHNIQUE: Transcutaneous scanning utilizing benítez-scale and Doppler modes to evaluate the bilateral carotid systems and vertebral arteries. Percentage of diameter of stenosis or no stenosis recorded will be based upon NASCET criteria. FINDINGS: Peak systolic/end diastolic (CM-Sec) CCA Right 99/14 Left 106/16. ICA Right proximal 83/15, distal 67/19. Left proximal 50/13, mid 59/18. Vertebral Right 43/6 Left 38/9. ECA (PS Only) Right 151 left 69. ICA/CCA peak systolic ratio: Right 0.8 Left 0.6 ICA/CCA end diastolic ratio: Right 1.0 Left 1.1 Vertebral arteries: antegrade flow. Comments: Bilateral mild to moderate atherosclerotic calcifications. Measurement of stenoses with grayscale imaging. Proximal right CCA: Area stenosis 33% and diameter stenosis 20%. Stenoses at other levels bilaterally or less than 25%. IMPRESSION: 1. Doppler evaluation of the bilateral carotid systems and vertebral arteries shows no hemodynamically significant stenoses. 2. Minimal to moderate amount of plaque seen in the carotid arteries bilaterally. Bilateral vertebral arteries showed antegrade-cephalad flow. Electronically signed by: Frank Arango MD 07/26/2019 12:06 PM CDT
== END ==
LOC: US 08:00
PROVIDERS: ATTEND Family Medicine
DX: I65.23 Occlusion and stenosis of bilateral carotid arteries (principal)

== ENCOUNTER → 2020-01-24 | Outpatient (CLI) | payer MEDICARE, BC | LOC: GMAL 11:37 | PROVIDERS: ATTEND Family Medicine | DX: D51.3 Other dietary vitamin B12 deficiency anemia (principal); R53.82 Chronic fatigue, unspecified; E55.9 Vitamin D deficiency, unspecified; I10 Essential (primary) hypertension; E11.9 Type 2 diabetes mellitus without complications; E78.49 Other hyperlipidemia ==

== ENCOUNTER → 2020-08-13 | Outpatient (CLI) | payer MEDICARE, BC | LOC: GMAL 11:02 | PROVIDERS: ATTEND Family Medicine | DX: E55.9 Vitamin D deficiency, unspecified (principal); R53.82 Chronic fatigue, unspecified; E78.49 Other hyperlipidemia; E11.9 Type 2 diabetes mellitus without complications; I10 Essential (primary) hypertension ==

== ENCOUNTER → 2020-08-20 | Outpatient (CLI) | payer MEDICARE, BC | LOC: GMAL 14:10 | PROVIDERS: ATTEND Family Medicine | DX: R30.0 Dysuria (principal); N39.498 Other specified urinary incontinence ==

== ENCOUNTER 2020-11-09 05:30 | Emergency (ER) | payer MEDICARE, BC ==
--- NOTE | 2020-11-09 06:02 | ED.PDOC ---
History of Present Illness - General Source: patient, family Exam Limitations: clinical condition - History of Present Illness Initial Comments: The patient is 85-year-old female presented emergency room with her secondary to having fallen while trying to get out of bed tonight. The patient has had several days of weakness. Weakness seem to have started the day after she received her second coronavirus vaccine. She had developed a fever on the day after and some dizziness along with it. She no longer has any fever or headache or dizziness, except from hitting her head from several falls. reports that patient is very difficult to get off the ground when she falls. No loss of consciousness. Patient thinks she hit her head lightly at least 3 or 4 times. I do not see significant lacerations or hematomas about the scalp. No apparent altered mental status from baseline. 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 Overall the patient is pleasant and cooperative. She is not showing any new focal neurological deficits. No neck pain. She does have some left ankle pain and some mild swelling. Pain is little worse laterally. Patient is alert and oriented x3, she is a little off on the date. This does not really seem to be a new thing. The patient has had significant falls in the past prior to this. Timing/Duration: 1 hour Severity: moderate Improving Factors: immobilization Worsening Factors: movement Associated Symptoms: malaise, weakness <Alex Patel - Last Filed: 11/09/20 06:13> <Roney Felix - Last Filed: 11/09/20 09:36> - General Chief Complaint: Neuro Symptoms/Deficits Stated Complaint: weakness Time Seen by Provider: 11/09/20 05:46 - History of Present Illness Allergies/Adverse Reactions: Allergies Penicillins Allergy (Mild, Verified 11/08/18 09:20) Other swelling to lower extremities Home Medications: Ambulatory Orders Dabigatran Etexilate [Pradaxa] 75 mg PO BID 06/15/14 Metoprolol Succinate [Toprol Xl] 50 mg PO BEDTIME 06/15/14 Simvastatin [Zocor] 20 mg PO BEDTIME 06/15/14 Bioflavonoid Products [Vitamin C] 1 chw PO DAILY 04/17/17 Estrogens, Conjugated [Premarin] 0.3 mg PO SUTUTHSA 04/17/17 Furosemide Tab [Lasix Tab] 40 mg PO DAILY 04/17/17 Multiple Vitamin [Multi Vitamin] 1 tab PO DAILY 04/17/17 Potassium Chloride [K-Tab] 20 meq PO DAILY@0630 04/17/17 Calcium 600 + D 600-200 mg-Unit 1 tablet PO DAILY 05/18/18 Digoxin 0.125 mg PO DAILY 05/18/18 Losartan Potassium 100 mg PO BEDTIME 05/18/18 Metformin HCl [Metformin Hydrochloride] 500 mg PO BID 05/18/18 Acetaminophen [Tylenol] 650 mg PO Q6H PRN tab 05/19/18 Gabapentin [Neurontin] 300 mg PO QPM PRN 11/08/18 Omeprazole 20 mg PO PRN PRN 11/08/18 Amlodipine Besylate 5 mg PO DAILY 11/09/20 Clopidogrel Bisulfate [Plavix] 75 mg PO NOON 11/09/20 Linagliptin [Tradjenta] 5 mg PO NOON 11/09/20 Warfarin Sodium 5 mg PO BEDTIME 11/09/20 Warfarin Sodium 7.5 mg PO BEDTIME 11/09/20 Review of Systems - Review of Systems Constitutional: States: malaise, weakness - Generalized EENTM: States: no symptoms reported Respiratory: States: no symptoms reported Cardiology: States: no symptoms reported Gastrointestinal/Abdominal: States: no symptoms reported Genitourinary: States: no symptoms reported Musculoskeletal: States: joint pain Skin: States: no symptoms reported Neurological: States: headache, weakness - Generalized Endocrine: States: no symptoms reported All other Systems: No Change from Baseline <Alex Patel - Last Filed: 11/09/20 06:13> Past Medical History (General) - Patient Medical History Hx Seizures: No Hx Stroke: No Hx Asthma: No Hx of COPD: No Hx Cardiac Disorders: Yes - A fib Hx Congestive Heart Failure: No Hx Pacemaker: No Hx Hypertension: Yes Hx Diabetes: Yes Hx Gastroesophageal Reflux: Yes Hx MRSA: No - Vaccination History Hx Tetanus, Diphtheria Vaccination: Yes Hx Influenza Vaccination: Yes Hx Pneumococcal Vaccination: Yes Immunizations Up to Date: Yes - Social History Hx Tobacco Use: No Hx Alcohol Use: No Hx Substance Use: No Hx Physical Abuse: No Hx Emotional Abuse: No <Alex Patel - Last Filed: 11/09/20 06:13> Family Medical History - Family History Mother Living Status: Cause of : pancreatic CA Hx Family Cancer: Yes - breast,pancreas-sister/mom <Alex Patel - Last Filed: 11/09/20 06:13> Physical Exam - Physical Exam General Appearance: Alert, No apparent distress Eye Exam: bilateral normal Ears, Nose, Throat: hearing grossly normal, normal pharynx Neck: non-tender, full range of motion, supple Respiratory: chest non-tender, lungs clear, normal breath sounds, no respiratory distress, no accessory muscle use Cardiovascular/Chest: normal peripheral pulses, regular rate, rhythm, no edema Peripheral Pulses: radial,right: 2+, radial,left: 2+ Gastrointestinal/Abdominal: non tender - Pelvis is stable, soft Rectal Exam: deferred Back Exam: no CVA tenderness Extremity: no calf tenderness, normal capillary refill, swelling - Increased swelling to the left ankle where she does have some pain primarily laterally., other - Chronic +1 edema bilaterally. Neurologic: ct scan technician II-XII nml as tested, alert, normal mood/affect, oriented x 3 Skin Exam: normal color Comments: Vital Signs - 24 hr 11/09/20 05:40 Temperature 97.8 F Pulse Rate 99 H Pulse Rate [ 99 H Right Radial] Respiratory 16 Rate Blood Pressure 185/89 [Right Arm] O2 Sat by Pulse 96 Oximetry <Alex Patel - Last Filed: 11/09/20 06:13> Progress - Progress Progress: 11/09/20 06:04 The patient is 85-year-old female presented emergency room after multiple falls over the last couple of days with difficulty getting back up. The patient had imaging done of her head, cervical spine, chest, abdomen pelvis and left ankle. Increased weakness may simply be due to generalized immune response to the coronavirus vaccine however we will try and rule out other contributing pathology. Patient is currently pleasant and cooperative and does not appear to be in significant distress. Blood pressures are elevated initially, however we will follow these and see if they come down as the patient relaxes. Once imaging returns, we will see how the patient functions. She may be unable to perform her activities of daily living. We will simply have to wa it and see. Care will be assumed by the oncoming ER physician. alex patel 891 - EKG/XRAY/CT CT Ordered: Yes CT Interpretation Call Back: Yes <Alex Patel - Last Filed: 11/09/20 06:13> - Progress Progress: 11/09/20 07:48 Dr. Felix Note: Patient turned over to me by Dr. Patel, patient seen and examined. Patient indicates she is feeling much better at this time. indicates that it is unusual for patient to be so weak that she cannot get up off the ground and believes that her recent Covid vaccination is the source of patient's symptoms. Patient's lactate is elevated at 2.8. There is no focal source of infection presently but UA is pending. Patient does indicate she has a history of "bladder problems" and UTI is likely. Patient cultured and IV fluids given and will begin IV antibiotics. Patient's D-dimer is also elevated and CTA chest has been ordered to evaluate for PE. Anticipate admission for generalized weakness and sepsis. 11/09/20 09:30 Patient's UA has resulted and it shows a considerable UTI which is most likely the source of patient's weakness and fall today. Patient has a nondisplaced distal fibula fracture and we will splint her leg in the ED and consult orthopedics. Patient's lactic acid has cleared from 2.8-1.9 following IV fluids and IV antibiotics. Patient's CT chest and CT head and C-spine are all negative for acute processes. I discussed the case with Werner Lucero, hospitalist, who accepts patient for admission. 11/09/20 09:36 Have left message [address] Dr[address] Rico, orthopedist, to consult. <Roney Felix - Last Filed: 11/09/20 09:36> Departure <Alex Patel - Last Filed: 11/09/20 06:13> - Departure Time of Disposition: 09:33 <Roney Felix - Last Filed: 11/09/20 09:36> - Departure Clinical Impression: Generalized weakness Fall at home Qualifiers: Encounter type: initial encounter Qualified Code(s): W19.XXXA - Unspecified fall, initial encounter UTI (urinary tract infection) Qualifiers: Urinary tract infection type: acute cystitis Hematuria presence: with hematuria Qualified Code(s): N30.01 - Acute cystitis with hematuria Fracture of distal fibula Qualifiers: Encounter type: initial encounter Fracture type: closed Fracture morphology: unspecified fracture morphology Laterality: left Qualified Code(s): S82.832A - Other fracture of upper and lower end of left fibula, initial encounter for cl osed fracture Disposition: Admit Patient Condition: Fair Home Medications: Ambulatory Orders Dabigatran Etexilate [Pradaxa] 75 mg PO BID 06/15/14 Metoprolol Succinate [Toprol Xl] 50 mg PO BEDTIME 06/15/14 Simvastatin [Zocor] 20 mg PO BEDTIME 06/15/14 Bioflavonoid Products [Vitamin C] 1 chw PO DAILY 04/17/17 Estrogens, Conjugated [Premarin] 0.3 mg PO SUTUTHSA 04/17/17 Furosemide Tab [Lasix Tab] 40 mg PO DAILY 04/17/17 Multiple Vitamin [Multi Vitamin] 1 tab PO DAILY 04/17/17 Potassium Chloride [K-Tab] 20 meq PO DAILY@0630 04/17/17 Calcium 600 + D 600-200 mg-Unit 1 tablet PO DAILY 05/18/18 Digoxin 0.125 mg PO DAILY 05/18/18 Losartan Potassium 100 mg PO BEDTIME 05/18/18 Metformin HCl [Metformin Hydrochloride] 500 mg PO BID 05/18/18 Acetaminophen [Tylenol] 650 mg PO Q6H PRN tab 05/19/18 Gabapentin [Neurontin] 300 mg PO QPM PRN 11/08/18 Omeprazole 20 mg PO PRN PRN 11/08/18 Amlodipine Besylate 5 mg PO DAILY 11/09/20 Clopidogrel Bisulfate [Plavix] 75 mg PO NOON 11/09/20 Linagliptin [Tradjenta] 5 mg PO NOON 11/09/20 Warfarin Sodium 5 mg PO BEDTIME 11/09/20 Warfarin Sodium 7.5 mg PO BEDTIME 11/09/20 Decision To Admit - Decistion To Admit Decision to Admit Reason: Admit from ER Decision to Admit Date: 11/09/20 Decision to Admit Time: 09:33 <Roney Felix - Last Filed: 11/09/20 09:36>
--- NOTE | 2020-11-09 06:53 | RAD ---
EXAM: Three view(s) of the left ankle. INDICATION: Pain. COMPARISON: None. FINDINGS: Bones are demineralized. Nondisplaced oblique fracture of the distal fibula. No other fracture is identified. Distal tibia appears intact. Ankle mortise is intact. Soft tissue swelling surrounding the ankle particularly along the lateral aspect. IMPRESSION: Nondisplaced oblique fracture of the distal fibula. Electronically signed by: Dragan Atkinson MD 11/09/2020 6:52 AM [facility]
--- NOTE | 2020-11-09 07:00 | CT ---
EXAM: CT cervical spine without contrast. INDICATION: Trauma. Neck pain. TECHNIQUE: Contiguous axial CT images of the cervical spine. Intravenous contrast: Absent. Reformats: MPRs created and utilized. DLP 359 mGy-cm. This exam was performed according to our departmental dose-optimization program, which includes automated exposure control, adjustment of the mA and/or kV according to patient size and/or use of iterative reconstruction technique. COMPARISON: 05/18/2018. FINDINGS: Alignment: Mild reversal of cervical lordosis. Fracture: No acute fracture or subluxation. Odontoid process: Intact. Prevertebral soft tissues: No edema. Spondylosis: Multilevel spondylosis with disc space narrowing, endplate sclerosis and marginal osteophytes, from C2-C3 to C5-C6. No severe spinal canal stenosis or neural foraminal narrowing at any level. Other: Scarring along the lung apices IMPRESSION: 1. No CT evidence of acute osseous injury of the cervical spine. Electronically signed by: Dragan Atkinson MD 11/09/2020 6:58 AM [facility]
--- NOTE | 2020-11-09 07:02 | CT ---
EXAM: CT head without contrast. INDICATION: Recurrent fall. TECHNIQUE: Contiguous axial CT images of the brain. Intravenous contrast: Absent. DLP 859 mGy-cm. This exam was performed according to our departmental dose-optimization program, which includes automated exposure control, adjustment of the mA and/or kV according to patient size and/or use of iterative reconstruction technique. COMPARISON: 05/19/2018. FINDINGS: Subcutaneous: Unremarkable. No acute intracranial hemorrhage. Diffuse cerebral atrophy with periventricular and deep white matter chronic microvascular changes. No midline shift. No mass effect. Ventricles: No hydrocephalus. Haro-white differentiation preserved. Paranasal sinuses/mastoid air cells: Visualized portions are aerated. Bones/orbits: Visualized portions are unremarkable. IMPRESSION: No acute intracranial abnormality Electronically signed by: Dragan Atkinson MD 11/09/2020 7:00 AM [employer]
--- NOTE | 2020-11-09 07:03 | RAD ---
EXAM: Acute abdominal series. INDICATION: Recurrent falls. COMPARISON: None. FINDINGS: Cardiac silhouette: Mildly enlarged Edwige: Unremarkable. Lobar consolidation: None. Pleural effusion: None. Pneumothorax: None. Other: None. Intraperitoneal free air: Negative. Bowel: No dilated loops of small bowel or air-fluid levels. Bones: Demineralized. No definite acute fracture. Other: None. IMPRESSION: 1. Nonspecific, nonobstructed bowel gas pattern. Electronically signed by: Dragan Atkinson MD 11/09/2020 7:01 AM [facility]
[2020-11-09] MEDS ORDERED: levoFLOXacin 750MG IV 750 MG in PREMIX BAG 1 BAG IVPB ONE (07:40)
[2020-11-09] MEDS ORDERED: SODIUM CHLORIDE 0.9% 1000ML 500 ML IVS ONE (07:46)
--- NOTE | 2020-11-09 09:19 | CT ---
EXAM DESCRIPTION: CTA Chest CLINICAL HISTORY: 85 years, Female, Elevated DD/ PE COMPARISON: None TECHNIQUE: CT pulmonary angiography is performed with thin-section multi detector technique during rapid bolus administration of IV contrast media. Multiplanar reformatted images are reviewed along with source images and maximum intensity projection three dimensional images which were created on a separate dedicated workstation and are stored in the patient's medical record. FINDINGS: Suboptimal contrast bolus timing (majority of contrast within the aorta, arterial phase). No filling defect or evidence of pulmonary embolism within the pulmonary trunk, right/left main or lobar pulmonary arteries. Evaluation of the segmental and subsegmental pulmonary arterial branches are limited due to suboptimal contrast bolus timing. The thoracic aorta is normal in caliber, mild sclerotic plaquing. Moderate biapical pleural thickening/scarring more pronounced on the right side. No focal consolidation, pneumothorax, or pleural effusion. The trachea and proximal bronchi are patent. No mediastinal or hilar lymphadenopathy. Enlarged left axillary lymph node measures 9 mm short axis. Cardiomegaly with biatrial (pronounced enlarged right atrium) and left ventricular enlargement. No pericardial effusion. Mild to moderate calcified multivessel coronary arterial atherosclerosis. No acute osseous abnormality. The partially imaged abdomen demonstrate possible enlarged liver with diffuse fatty infiltration. Suspect partially imaged superior pole of the left kidney. IMPRESSION: 1. Suboptimal contrast bolus timing. No evidence of acute or chronic pulmonary embolism. 2. Moderate biapical pleural thickening/scarring. 3. Cardiomegaly with coronary atherosclerosis. 4. Suggestion of hepatic steatosis. 5. Prominent left axillary lymph node can be reactive, for correlation with recent vaccination in the left arm. This exam was performed according to our departmental dose-optimization program, which includes automated exposure control, adjustment of the mA and/or kV according to patient size and/or use of iterative reconstruction technique. Electronically signed by: Kumar Long DO 11/09/2020 9:18 AM [employer]
[2020-11-09 13:10] VITALS: BP 167/95; TEMP 100; O2SAT 95
== END 2020-11-09 13:00 ==
LOC: ER 05:30
DX: S82.832A Other fracture of upper and lower end of left fibula, initial encounter for closed fracture (principal); N30.01 Acute cystitis with hematuria; R53.1 Weakness; R29.6 Repeated falls; I48.91 Unspecified atrial fibrillation; I45.10 Unspecified right bundle-branch block; R51.9 Headache, unspecified; K21.9 Gastro-esophageal reflux disease without esophagitis; E11.9 Type 2 diabetes mellitus without complications; I10 Essential (primary) hypertension; F03.90 Unspecified dementia, unspecified severity, without behavioral disturbance, psychotic disturbance, mood disturbance, and anxiety; Z79.01 Long term (current) use of anticoagulants; Z20.822 Contact with and (suspected) exposure to COVID-19; Z79.84 Long term (current) use of oral hypoglycemic drugs; Z88.0 Allergy status to penicillin; W06.XXXA Fall from bed, initial encounter
CPT/HCPCS: 36415; 70450; 71275; 72125; 73610; 74019; 80053; 81001; 82550; 82553; 83605; 83735; 83880; 84443; 84484; 85025; 85379; 85610; 85730; 87040; 87086; 87088; 87186; 87502; 87635; 93005; J1956; J7030

== ENCOUNTER → 2020-11-26 | Outpatient (CLI) | payer MEDICARE, BC ==
--- NOTE | 2020-11-26 09:55 | RAD ---
EXAM DESCRIPTION: Ankle,Left 3 Views CLINICAL HISTORY: PAIN COMPARISON: November 08, 2020 IMPRESSION: 3 views of the left ankle again demonstrates a comminuted transversely oriented fracture through the distal fibula at the level of the ankle mortise with 2 mm lateral displacement of the distal fracture fragment which is similar to previous exam. Fracture lucency is slightly more prominent with indistinctness of the fracture margins which could indicate early healing. No significant periosteal reaction or callus formation is seen at this time. Ankle mortise appears maintained. No medial malleolar fracture. Mild diffuse soft tissue swelling around the ankle is seen. Small plantar enthesophyte of the calcaneus. Electronically signed by: Chico Osborn MD 11/26/2020 9:54 AM [facility]
== END ==
LOC: RAD 08:08
PROVIDERS: ATTEND Orthopaedic Surgery
DX: S82.832D Other fracture of upper and lower end of left fibula, subsequent encounter for closed fracture with routine healing (principal); M79.9 Soft tissue disorder, unspecified